=== PATIENT | male | born 1970 | race Caucasian/White ===

== ENCOUNTER → 2018-06-17 | Outpatient (CLI) | payer BC ==
--- NOTE | 2018-06-17 12:19 | CT ---
EXAMINATION TYPE: CT abdomen pelvis wo con DATE OF EXAM: 06/17/2018 COMPARISON: July 28, 2016 HISTORY: Rt side flank pain CT DLP: 1748.3 mGycm Examination of the solid and hollow viscera is limited given the lack of contrast. FINDINGS: LUNG BASES: No evidence for nodule. No evidence for infiltrate. LIVER/GB: The gallbladder is unremarkable. No space-occupying hepatic lesion. PANCREAS: No pancreatic mass identified. No inflammatory process seen. SPLEEN: No evidence for splenomegaly. No intrasplenic lesions seen. ADRENALS: No adrenal nodules identified. No evidence for thickening. KIDNEYS: Distal right ureteral calculus just proximal to the UVJ measuring 3 mm. There is result in r ight-sided hydroureteronephrosis which is [id number] in degree. There is right renal edema and perinephric stranding. Underlying infection is difficult to exclude. Nonobstructing mid right renal c alculus measuring 8.5 mm. BOWEL: Appendix has a normal appearance. No evidence of bowel obstruction. No inflammatory process. Lymph nodes: No evidence for adenopathy greater than 1 cm. Abdominal aorta: Atheromatous changes seen. No evidence for aneurysm. Genital organs: No significant abnormality. Other: Fat-containing umbilical hernia. IMPRESSION: 1.Distal right ureteral calculus just proximal to the UVJ measuring 3 mm. See above.
== END | disposition home or self-care (01) ==
LOC: RADCTMAIN 11:43
PROVIDERS: ATTEND Nurse Practitioner Adult Health
DX: N13.2 Hydronephrosis with renal and ureteral calculous obstruction (principal)
CPT/HCPCS: 74176

== ENCOUNTER → 2018-06-22 | Outpatient (CLI) | payer BC ==
--- NOTE | 2018-06-22 16:10 | XR ---
Abdomen HISTORY: Right kidney stones Frontal view the abdomen submitted on [address] images [address] to CT scan 06/17/2018 Calcification is superimposed over the upper pole the right kidney measuring approximately 7 to 8 mm. Difficult to exclude distal ureteral calculus as noted on prior CT. Multiple calcifications are seen within the pelvis. Lung bases are not included on exam. No evident pneumoperitoneum or bowel obstruc tion. There is a levoscoliosis of the lumbar spine. IMPRESSION: Right-sided nephrolithiasis. Multiple calcifications seen within the pelvis, difficult to exclude distal right ureteral calculus.
== END | disposition home or self-care (01) ==
LOC: RADXRMAIN 15:39
PROVIDERS: ATTEND Urology
DX: N20.0 Calculus of kidney (principal)
CPT/HCPCS: 74018

== ENCOUNTER 2019-04-02 22:22 | Inpatient (IN) | payer BC ==
[2019-04-02] MEDS ORDERED: SODIUM CHLORIDE 0.9% 1,000 ML IV STA (22:46)
[2019-04-02 23:19] LABS: Basophils % (A) 0 %; Eosinophils # (A) 0.3 k/uL (0-0.7); Eosinophils % (A) 2 %; HCT 46.7 % (39.0-53.0); HGB 15.6 gm/dL (13.0-17.5); Lymphocytes # (A) 1.5 k/uL (1.0-4.8); Lymphocytes % (A) 9 %; MCH 28.7 pg (25.0-35.0); MCHC 33.5 g/dL (31.0-37.0); MCV 85.7 fL (80.0-100.0); Mean Platelet Volume 6.7; Monocytes # (A) 0.5 k/uL (0-1.0); Monocytes % (A) 3 %; Neutrophils % (A) 85 %; Platelet Count 244 k/uL (150-450); RBC 5.45 m/uL (4.30-5.90); RDW 14.7 % (11.5-15.5); WBC 16.4 k/uL (3.8-10.6)
[2019-04-02 23:27] LABS: ALT 31 U/L (21-72); AST 18 U/L (17-59); African American GFR (CKD) >90 (>60 ml/min/1.73 sqM); Albumin 4.6 g/dL (3.5-5.0); Alkaline Phosphatase 66 U/L (38-126); Anion Gap 10 mmol/L; Blood Urea Nitrogen 11 mg/dL (9-20); Calcium 8.8 mg/dL (8.4-10.2); Carbon Dioxide 28 mmol/L (22-30); Chloride 102 mmol/L (98-107); Glucose 125 mg/dL (74-99); Sodium 140 mmol/L (137-145); Total Bilirubin 1.2 mg/dL (0.2-1.3); Total Protein 7.5 g/dL (6.3-8.2)
[2019-04-02] MEDS ORDERED: ACETAMINOPHEN TAB 325 MG TAB PO STA (23:31)
[2019-04-02 23:41] LABS: Lipase 2415 U/L (23-300)
--- NOTE | 2019-04-03 00:18 | CT ---
EXAM: CT Abdomen and Pelvis With Intravenous Contrast CLINICAL HISTORY: ITS.REASON CT Reason: Pain TECHNIQUE: Axial computed tomography images of the abdomen and pelvis with intravenous contrast. This CT exam was performed using one or more of the following dose reduction techniques: automated exposure control, adjustment of the mA and/or kV according to patient size, and/or use of iterative reconstruction technique. COMPARISON: No relevant prior studies available. FINDINGS: Lung bases: Unremarkable. No mass. No consolidation. ABDOMEN: Liver: Unremarkable. No mass. Gallbladder and bile ducts: No abnormal ductal dilation or stones. Pancreas: Acute pancreatitis, no fluid collection. No ductal dilation. Spleen: Unremarkable. No splenomegaly. Adrenals: Unremarkable. No mass. Kidneys and ureters: Nonobstructing right renal stone. Stomach and bowel: No obstruction. No mucosal thickening. PELVIS: Appendix: No findings to suggest acute appendicitis. Bladder: Unremarkable. No mass. Reproductive: Unremarkable as visualized. ABDOMEN and PELVIS: Intraperitoneal space: Unremarkable. No free air. No significant fluid collection. Bones/joints: No acute fracture. No dislocation. Soft tissues: Small fat-containing umbilical hernia. Vasculature: No abdominal aortic aneurysm. Lymph nodes: Unremarkable. No enlarged lymph nodes. IMPRESSION: 1. Acute pancreatitis, no fluid collection. 2. Nonobstructing right renal stone.
[2019-04-03] MEDS ORDERED: SODIUM CHLORIDE 0.9% 1,000 ML IV STA (00:28)
[2019-04-03] MEDS ORDERED: NALOXONE 0.4 MG/ML 1 ML VIAL IV PRN (00:40)
[2019-04-03] MEDS ORDERED: HYDROmorphone 1 MG/ML 1 ML SYRINGE IVP PRN (00:40)
[2019-04-03] MEDS ORDERED: ONDANSETRON 4 MG/2 ML VIAL IVP PRN (00:40)
[2019-04-03 00:42] LABS: Appearance,Urine Clear (Clear); Bilirubin,Urine Negative (Negative); Blood,Urine Small (Negative); Color,Urine Yellow; Glucose,Urine (UA) Negative (Negative); Ketones,Urine Negative (Negative); Leukocyte Esterase,Urine Negative (Negative); Mucus,Urine Rare /hpf; Nitrite,Urine Negative (Negative); Protein,Urine 1+ (Negative); RBC,Urine 13 /hpf (0-5); Urobilinogen,Urine <2.0 mg/dL (<2.0); WBC,Urine 1 /hpf (0-5)
[2019-04-03 00:43] LABS: Specific Gravity,Urine >1.050 (1.001-1.035)
[2019-04-03] MEDS ORDERED: IBUPROFEN 800 MG TAB PO STA (00:52)
[2019-04-03] MEDS ORDERED: cefTRIAXone IN SWFI 1,000 MG/10 ML SYRINGE IVP STA (00:52)
--- NOTE | 2019-04-03 00:56 | ED ---
General Adult HPI - General Source: patient, RN notes reviewed, old records reviewed Mode of arrival: ambulatory Limitations: no limitations <Cristian Rueda - Last Filed: 04/03/19 00:56> <Nusrat Ruiz - Last Filed: 04/05/19 06:19> - General Chief complaint: Abdominal Pain Stated complaint: Abd pain Time Seen by Provider: 04/02/19 22:46 - History of Present Illness Initial comments: 48-year-old male patient with past history of hypertension presents to ED 2 days of epigastric abdominal pain. Patient reports he has had nausea without emesis. Patient proceeded seen by his primary care provider today and was recommended to present to ED if pain is not improved or if fever develops. Patient does report that he felt warm at home. Patient denies any chest pain shortness of breath. Patient denies any other complaints at this time. Systemic: Pt denies fatigue, fever/chills, rash. Pt denies weakness, night sweats, weight loss. Neuro: Pt denies headache, visual disturbances, syncope or pre-syncope. HEENT: Pt denies ocular discharge or irritation, otalgia, rhinorrhea, pharyngitis or notable lymphadenopathy. Cardiopulmonary: Pt denies chest pain, SOB, heart palpitations, dyspnea on exertion. Abdominal/GI: Pt denies v/d. : Pt denies dysuria, burning w/ urination, frequency/urgency. Denies new onset urinary or bowel incontinence. MSK: Pt denies myalgia, loss of strength or function in extremities. Neuro: Pt denies new onset weakness, paresthesias. (Cristian Rueda) - Related Data Home Medications Medication Instructions Recorded Confirmed Losartan Potassium 100 mg PO DAILY 04/02/19 04/02/19 Allergies Allergy/AdvReac Type Severity Reaction Status Date / Time No Known Allergies Allergy Verified 04/02/19 23:14 Review of Systems ROS Other: All systems not noted in ROS Statement are negative. <Cristian Rueda - Last Filed: 04/03/19 00:56> ROS Other: All systems not noted in ROS Statement are negative. <Nusrat Ruiz - Last Filed: 04/05/19 06:19> ROS Statement: Those systems with pertinent positive or pertinent negative responses have been documented in the HPI. Past Medical History Past Medical History: Hypertension Additional Past Medical History / Comment(s): KIDNEY STONES History of Any Multi-Drug Resistant Organisms: None Reported Past Surgical History: No Surgical Hx Reported Past Psychological History: No Psychological Hx Reported Smoking Status: Never smoker Past Alcohol Use History: Rare Past Drug Use History: None Reported <Cristian Rueda - Last Filed: 04/03/19 00:56> - Past Family History Father Family Medical History: Diabetes Mellitus Mother Family Medical History: Diabetes Mellitus <Nusrat Ruiz Jaxon - Last Filed: 04/05/19 06:19> General Exam Limitations: no limitations <Cristian Rueda - Last Filed: 04/03/19 00:56> - General Exam Comments Initial Comments: Constitutional: NAD, AOX3, Pt has pleasant affect. HEENT: NC/AT, trachea midline, neck supple, no lymphadenopathy. Posterior pharynx non erythematous, without exudates. External ears appear normal, without discharge. Mucous membranes moist. Eyes PERRLA, EOM intact. There is no scleral icterus. No pallor noted. Cardiopulmonary: RRR, no murmurs, rubs or gallops, no JVD noted. Lungs CTAB in anterior and posterior rivera. No peripheral edema. Abdominal exam: Abdomen soft and non-distended. Abdomen mildly tender to palpation epigastric region, no ecchymoses. No guarding or rigidity. Bowel sounds active in LLQ. No hepatosplenomegaly. No ecchymosis Neuro: CN II-XII grossly intact. No nuchal rigidity. No raccon eyes, no pham sign, no hemotympanum. No cervical spinal tenderness. MSK: No posterior calf tenderness bilaterally, homans sign negative bilaterally. Posterior tibialis and radial pulse +2 bilaterally. Sensation intact in upper and lower extremities. Full active ROM in upper and lower extremities, 5/5 stregnth. (Cristian Rueda) Course Vital Signs 04/02/19 04/03/19 04/03/19 22:27 00:38 01:15 Temperature 100.1 F H 101.9 F H Pulse Rate 107 H 90 Respiratory 18 18 18 Rate Blood Pressure 154/90 152/92 O2 Sat by Pulse 95 98 Oximetry Medical Decision Making - Lab Data Result diagrams: 04/02/19 23:10 04/02/19 23:10 <Cristian Rueda - Last Filed: 04/03/19 00:56> - Lab Data Result diagrams: 04/04/19 06:49 04/04/19 06:49 <Nusrat Ruiz - Last Filed: 04/05/19 06:19> - Medical Decision Making 48-year-old male patient with past history of hypertension presents to ED 2 days of epigastric abdominal pain. Patient reports he has had nausea without emesis. Patient proceeded seen by his primary care provider today and was recommended to present to ED if pain is not improved or if fever develops. Patient does report that he felt warm at home. Patient denies any chest pain shortness of breath. Patient denies any other complaints at this time. 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 Physical exam displayed epigastric region mildly tender to palpation. -Investigations revealed a leukocytosis of 16.4. CMP revealed mildly elevated glucose of 125. Lipase elevated at 2415. UA displayed 13 red blood cells. Influenza negative. CT abdomen and pelvis display acute pancreatitis, no fluid collection. Not c hecking right renal stone. Patient be admitted for acute pancreatitis. Case discussed in depth with Dr. Ruiz. Patient continues to be febrile. Second, para administered. Blood cultures obtained and pending. Patient administered 1 g of prophylactic Rocephin. (Cristian Rueda) I Evaluated the patient. I agree with plan for admission for increased otitis. I did note that the patient was febrile blood cultures were ordered patient was given Rocephin. (Nusrat Ruiz) - Lab Data Lab Results 04/02/19 04/02/19 04/02/19 Range/Units 23:10 23:10 23:10 WBC 16.4 H (3.8-10.6) k/uL RBC 5.45 (4.30-5.90) m/uL Hgb 15.6 (13.0-17.5) gm/dL Hct 46.7 (39.0-53.0) % MCV 85.7 (80.0-100.0) fL MCH 28.7 (25.0-35.0) pg MCHC 33.5 (31.0-37.0) g/dL RDW 14.7 (11.5-15.5) % Plt Count 244 (150-450) k/uL Neutrophils % 85 % Lymphocytes % 9 % Monocytes % 3 % Eosinophils % 2 % Basophils % 0 % Neutrophils # 14.0 H (1.3-7.7) k/uL Lymphocytes # 1.5 (1.0-4.8) k/uL Monocytes # 0.5 (0-1.0) k/uL Eosinophils # 0.3 (0-0.7) k/uL Basophils # 0.0 (0-0.2) k/uL Sodium 140 (137-145) mmol/L Potassium 4.0 (3.5-5.1) mmol/L Chloride 102 (98-107) mmol/L Carbon Dioxide 28 (22-30) mmol/L Anion Gap 10 mmol/L BUN 11 (9-20) mg/dL Creatinine 1.04 (0.66-1.25) mg/dL Est GFR (CKD-EPI)AfAm >90 (>60 ml/min/1.73 sqM) Est GFR (CKD-EPI)NonAf 86 (>60 ml/min/1.73 sqM) Glucose 125 H (74-99) mg/dL Plasma Lactic Acid Girma 1.0 (0.7-2.0) mmol/L Calcium 8.8 (8.4-10.2) mg/dL Total Bilirubin 1.2 (0.2-1.3) mg/dL AST 18 (17-59) U/L ALT 31 (21-72) U/L Alkaline Phosphatase 66 (38-126) U/L Total Protein 7.5 (6.3-8.2) g/dL Albumin 4.6 (3.5-5.0) g/dL Lipase 2415 H (23-300) U/L Urine Color Urine Appearance (Clear) Urine pH (5.0-8.0) Ur Specific [place] (1.001-1.035) Urine Protein (Negative) Urine Glucose (UA) (Negative) Urine Ketones (Negative) Urine Blood (Negative) Urine Nitrite (Negative) Urine Bilirubin (Negative) Urine Urobilinogen (<2.0) mg/dL Ur Leukocyte Esterase (Negative) Urine RBC (0-5) /hpf Urine WBC (0-5) /hpf Urine Mucus (None) /hpf Influenza Type A RNA (Not Detectd) Influenza Type B (PCR) (Not Detectd) 04/02/19 04/03/19 Range/Units 23:10 00:15 WBC (3.8-10.6) k/uL RBC (4.30-5.90) m/uL Hgb (13.0-17.5) gm/dL Hct (39.0-53.0) % MCV (80.0-100.0) fL MCH (25.0-35.0) pg MCHC (31.0-37.0) g/dL RDW (11.5-15.5) % Plt Count (150-450) k/uL Neutrophils % % Lymphocytes % % Monocytes % % Eosinophils % % Basophils % % Neutrophils # (1.3-7.7) k/uL Lymphocytes # (1.0-4.8) k/uL Monocytes # (0-1.0) k/uL Eosinophils # (0-0.7) k/uL Basophils # (0-0.2) k/uL Sodium (137-145) mmol/L Potassium (3.5-5.1) mmol/L Chloride (98-107) mmol/L Carbon Dioxide (22-30) mmol/L Anion Gap mmol/L BUN (9-20) mg/dL Creatinine (0.66-1.25) mg/dL Est GFR (CKD-EPI)AfAm (>60 ml/min/1.73 sqM) Est GFR (CKD-EPI)NonAf (>60 ml/min/1.73 sqM) Glucose (74-99) mg/dL Plasma Lactic Acid [place] (0.7-2.0) mmol/L Calcium (8.4-10.2) mg/dL Total Bilirubin (0.2-1.3) mg/dL AST (17-59) U/L ALT (21-72) U/L Alkaline Phosphatase (38-126) U/L Total Protein (6.3-8.2) g/dL Albumin (3.5-5.0) g/dL Lipase (23-300) U/L Urine Color Yellow Urine Appearance Clear (Clear) Urine pH 7.0 (5.0-8.0) Ur Specific [place] >1.050 H (1.001-1.035) Urine Protein 1+ H (Negative) Urine Glucose (UA) Negative (Negative) Urine Ketones Negative (Negative) Urine Blood Small H (Negative) Urine Nitrite Negative (Negative) Urine Bilirubin Negative (Negative) Urine Urobilinogen <2.0 (<2.0) mg/dL Ur Leukocyte Esterase Negative (Negative) Urine RBC 13 H (0-5) /hpf Urine WBC 1 (0-5) /hpf Urine Mucus Rare H (None) /hpf Influenza Type A RNA Not Detected (Not Detectd) Influenza Type B (PCR) Not Detected (Not Detectd) Disposition Is patient prescribed a controlled substance at d/c from ED?: No <Cristian Rueda - Last Filed: 04/03/19 00:56> <Nusrat Ruiz - Last Filed: 04/05/19 06:19> Clinical Impression: Acute pancreatitis Disposition: ADMITTED IP TO THIS HOSP Condition: Serious
[2019-04-03 02:11] VITALS: BMI 47.9
[2019-04-03] MEDS: SODIUM CHLORIDE 0.9% 1,000 ML IV SCH ×2 (04:26→21:30)
[2019-04-03] MEDS ORDERED: cloNIDine 0.1 MG/24HR PATCH TRANSDERM SCH (08:30)
[2019-04-03] MEDS ORDERED: LOSARTAN 50 MG TAB PO SCH (12:00)
[2019-04-03] MEDS: MORPHINE SULFATE 4 MG/ML SYRINGE IV PRN (13:29)
--- NOTE | 2019-04-03 13:33 | P.CONS ---
History of Present Illness - Reason for Consult Consult date: 04/03/19 Pancreatitis Requesting physician: Frederic Souza - Chief Complaint Abdominal pain - History of Present Illness Pleasant 48-year-old male with a medical history significant for CHINMAY, hypertension and kidney stones who presented to the hospital with complaints of abdominal pain. The patient reports sudden onset of abdominal pain above the belly button without radiation. Pain was described as sharp in nature. He reports nausea with multiple episodes of vomiting productive of food which she had previously been with no reports of coffee-ground emesis or blood in his em esis. He denies any triggering foods, travel, or new medications. He does report that his patient had some flulike symptoms on the weekend. The patient reports very rare use of alcohol and has not drank in the past 3 weeks. He denies any family history of pancreatic cancer or pancreatitis or prior gallbladder pathology in himself or his family members. On presentation to the hospital WBC 16.4, hemoglobin 15.6, platelet count 244,000. His lipase was found to be 2415, total bilirubin 1.2, alkaline phosphatase 66, AST 18, ALTs 31. Computed tomography scan on admission was significant for acute uncomplicated pancreatitis with a right renal stone. The patient does report prior colonoscopy approximately 5 years ago for bleeding which she reports was essentially normal. No prior EGD reported. Review of Systems REVIEW OF SYSTEMS: CONSTITUTIONAL: Denies any fevers, chills, weight change or fatigue. CARDIOVASCULAR: Denies any chest pain, palpitations high or low blood pressures RESPIRATORY: Denies any shortness of breath, hemoptysis or cough. GENITOURINARY: No dysuria or hematuria. MUSCULOSKELETAL: No weakness reported. SKIN: Denies any new rashes or lesions, jaundice or pallor. PSYCHIATRIC: Denies any depression or anxiety. NEUROLOGY: Denies headache, denies any new focal deficits. EARS/NOSE/THROAT: No recent hearing change, congestion, nasal discharge or sore throat. EYES: No pain in eyes, discharge or change in vision. GASTROINTESTINAL: As per HPI. Past Medical History Past Medical History: Hypertension, Sleep Apnea/CPAP/BIPAP Additional Past Medical History / Comment(s): KIDNEY STONES; wears CPAP at home at night History of Any Multi-Drug Resistant Organisms: None Reported Past Surgical History: No Surgical Hx Reported Additional Past Surgical History / Comment(s): kidney stone removal in 2017 Past Psychological History: No Psychological Hx Reported Smoking Status: Former smoker Past Alcohol Use History: Rare Past Drug Use History: None Reported Additional Drug Use History / Comment(s): patient states he quit smoking 20 years ago; reports only occasional alcohol use <1 drink per day. - Past Family History Father Family Medical History: Diabetes Mellitus Mother Family Medical History: Diabetes Mellitus Medications and Allergies Home Medications Medication Instructions Recorded Confirmed Type Losartan Potassium 100 mg PO DAILY 04/02/19 04/02/19 History Allergies Allergy/AdvReac Type Severity Reaction Status Date / Time No Known Allergies Allergy Verified 04/02/19 23:14 Physical Exam Vitals: Vital Signs Temp Pulse Pulse Resp BP BP Pulse Ox 04/03/19 08:10 82 20 04/03/19 07:00 98.2 F 82 20 176/95 97 04/03/19 01:58 98.3 F 04/03/19 01:57 98.2 F 92 18 152/91 95 04/03/19 01:15 18 04/03/19 00:38 101.9 F H 90 18 152/92 98 04/02/19 22:27 100.1 F H 107 H 18 154/90 95 Intake and Output 04/02/19 04/03/19 04/03/19 22:59 06:59 14:59 Other: Voiding Method Toilet Weight 147.418 kg On physical examination, patient appears comfortable in no apparent distress. HEAD: Normocephalic, atraumatic. EYES: No scleral icterus. No conjunctival injection. MOUTH: No lesions, tongue midline. NECK: Trachea midline, no gross abnormalities. CHEST: Clear to auscultation with no wheezing or rhonchi appreciated. HEART: Regular rate and rhythm. ABDOMEN: Soft, obese and diffusely tender to palpation. Bowel sounds are positive. No organomegaly. No guarding or rigidity. EXTREMITIES: No pedal edema. SKIN: No rashes, no jaundice. NEUROLOGIC: Alert and oriented x3. No focal deficits. Results CBC & Chem 7: 04/02/19 23:10 04/02/19 23:10 Labs: Abnormal Lab Results - Last 24 Hours (Table) 04/02/19 04/02/19 04/03/19 Range/Units 23:10 23:10 00:15 WBC 16.4 H (3.8-10.6) k/uL Neutrophils # 14.0 H (1.3-7.7) k/uL Glucose 125 H (74-99) mg/dL Lipase 2415 H (23-300) U/L Ur Specific [place] >1.050 H (1.001-1.035) Urine Protein 1+ H (Negative) Urine Blood Small H (Negative) Urine RBC 13 H (0-5) /hpf Urine Mucus Rare H (None) /hpf CT scan - abdomen: report reviewed (Computed tomography scan of the abdomen with findings of acute uncomplicated pancreatitis and a right renal stone) Assessment and Plan (1) Acute pancreatitis Narrative/Plan: 48-year-old male presenting with first episode of acute uncomplicated pancreatitis. Patient denies any recent binge alcohol use or chronic use of alcohol. No prior history of gallstone pathology and CT negative for cholelit hiasis, cholecystitis or choledocholithiasis. Current Visit: Yes Status: Acute Code(s): K85.90 - ACUTE PANCREATITIS WITHO UT NECROSIS OR INFECTION, UNSP SNOMED Code(s): 549206215 Plan: Supportive care Nothing by mouth, okay for ice chips We'll increase maintenance fluids 150 mL lactated ringer per hour Continue pain control Encourage ambulation Triglyceride level pending in the a.m. Continue to monitor CBC, CMP Ultrasound abdomen ordered to rule out cholelithiasis Thank you for allowing us to participate in the care of the patient we will continue to follow
--- NOTE | 2019-04-03 14:35 | US ---
EXAMINATION TYPE: US abdomen complete DATE OF EXAM: 04/03/2019 COMPARISON: CT CLINICAL HISTORY: Pancreatitis rule out gallstones. PAIN EXAM MEASUREMENTS: Liver Length: 16.5 cm Gallbladder Wall: 0.3 cm CBD: 0.5 cm Spleen: 13.2 cm Right Kidney: 12.3 x 6.0 x 5.7 cm Left Kidney: 12.0 x 6.0 x 5.4 cm Morbidly obese pt, difficult to penetrate Pancreas: Obscured by bowel gas Liver: Limited visualized portions appeared wnl Gallbladder: wnl Evidence for sonographic Isaacs's sign: No CBD: wnl Spleen: Enlarged Right Kidney: Lower pole calculus= 0.7 cm Left Kidney: Limited visualization appears wnl Upper IVC: wnl Abd Aorta: Obscured by overlying bowel gas IMPRESSION: No gallstones or dilated ducts. Calculus without obstruction or pleural right kidney.
[2019-04-03] MEDS: ENOXAPARIN 40 MG/0.4 ML SYRINGE SQ SCH (18:12)
[2019-04-03] MEDS: LACTATED RINGERS 1,000 ML IV SCH ×2 (20:03→21:27)
[2019-04-03] MEDS: ACETAMINOPHEN TAB 325 MG TAB PO PRN (20:10)
--- NOTE | 2019-04-03 23:14 | HP ---
HISTORY AND PHYSICAL DATE OF ADMISSION: April 03, 2019. DATE OF SERVICE: April 03, 2019. PRESENTING COMPLAINT: Abdominal pain, nausea, vomiting, fever. HISTORY OF PRESENTING COMPLAINT: This is a 48-year-old patient of Dr. Rodarte whose chronic stable medical conditions include hypertension, obstructive sleep apnea, kidney stones. On afternoon, patient started off with nausea, vomiting, fever, increasing abdominal pain and presented to the ER. Pain was rather significant. The patient was found to be in acute pancreatitis, also having fevers. Admitted for the same. Feeling tired and run down. GI was consulted. REVIEW OF SYSTEMS: CONSTITUTIONAL: Febrile, tired. HEENT: None. RESPIRATORY none. GASTROINTESTINAL as above. GENITOURINARY none. MUSCULOSKELETAL none. DERMATOLOGIC, HEMATOLOGIC AND LYMPHATIC: None. PSYCHIATRY none. NEUROLOGICAL none. PAST MEDICAL HISTORY: Hypertension, obstructive sleep apnea, kidney stones. PAST SURGICAL HISTORY: Kidney stone removed 2016. SOCIAL HISTORY: Alcohol occasionally. Stopped smoking over 20 years ago. 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 FAMILY HISTORY: Diabetes. HOME MEDICATIONS: Losartan 100 mg a day. ALLERGIES: None. PHYSICAL EXAMINATION: VITAL SIGNS: Temperature 101.9, pulse 107, respiration 18, blood pressure 154/90, pulse ox 95% on room air. GENERAL APPEARANCE: Well built, BMI 48. Lying in bed, tired-appearing. EYES: Pupils equal. Conjunctivae normal. HEENT: External appearance of nose and ears normal. Oral cavity normal. NECK: JVD not raised. Mass not palpable. RESPIRATORY: Effort normal. LUNGS: Fair air entry. CARDIOVASCULAR: First and second sounds normal. No edema. ABDOMEN: Epigastric tenderness. No guarding or rigidity. Liver and spleen not palpable. LYMPHATIC: No lymph nodes palpable in the neck and axilla. PSYCHIATRY: Alert and oriented x3. Mood and affect normal. NEUROLOGICAL: Pupils equal. Cranial nerves grossly intact. Power and sensation grossly intact. INVESTIGATIONS: White count 16.4, hemoglobin 15.6, potassium 4, BUN 11, creatinine 1.04, lipase [id number]. Abdominal ultrasound did not show any gallstones. CT scan of the abdomen and pelvis suggestive of acute pancreatitis. ASSESSMENT: 1. Acute pancreatitis with sepsis picture, present on admission. No history of alcoholism. There is no gallstones. 2. Essential hypertension. 3. Obstructive sleep apnea. 4. Morbid obesity. BMI 48.0. PLAN: The patient has been made n.p.o., getting IV fluids. Pain control is in place. The patient was started on a Catapres patch for his blood pressure. Questions were answered. GI was consulted. Lovenox for DVT prophylaxis. We will check labs again in the morning. Hold off any antibiotics right now. There also appears to be inflammation. Care was discussed with the patient. Copy to Dr. Roadrte. MMODL / IJN: [id number] /
[2019-04-04] MEDS: SODIUM CHLORIDE 0.9% 1,000 ML IV SCH
[2019-04-04] MEDS: ACETAMINOPHEN TAB 325 MG TAB PO PRN ×2 (01:51→19:33)
[2019-04-04] MEDS: MORPHINE SULFATE 4 MG/ML SYRINGE IV PRN ×2 (03:37→17:21)
[2019-04-04] MEDS: LACTATED RINGERS 1,000 ML IV SCH ×4 (05:48→23:38)
[2019-04-04 07:34] LABS: Basophils % (A) 0 %; Eosinophils # (A) 0.2 k/uL (0-0.7); Eosinophils % (A) 1 %; HGB 13.9 gm/dL (13.0-17.5); Lymphocytes # (A) 2.1 k/uL (1.0-4.8); Lymphocytes % (A) 14 %; MCH 29.3 pg (25.0-35.0); MCHC 33.8 g/dL (31.0-37.0); MCV 86.7 fL (80.0-100.0); Mean Platelet Volume 6.8; Monocytes # (A) 0.8 k/uL (0-1.0); Monocytes % (A) 5 %; Neutrophils # (A) 12.4 k/uL (1.3-7.7); Neutrophils % (A) 79 %; Platelet Count 218 k/uL (150-450); RBC 4.73 m/uL (4.30-5.90); WBC 15.8 k/uL (3.8-10.6)
[2019-04-04 07:50] LABS: ALT 22 U/L (21-72); AST 12 U/L (17-59); African American GFR (CKD) >90 (>60 ml/min/1.73 sqM); Albumin 3.6 g/dL (3.5-5.0); Alkaline Phosphatase 61 U/L (38-126); Amylase 146 U/L (30-110); Anion Gap 7 mmol/L; Blood Urea Nitrogen 10 mg/dL (9-20); Calcium 8.3 mg/dL (8.4-10.2); Carbon Dioxide 29 mmol/L (22-30); Chloride 103 mmol/L (98-107); Cholesterol 102 mg/dL (<200); Glucose 92 mg/dL (74-99); HDL Cholesterol 27 mg/dL (40-60); LDL Cholesterol,Calculated 62 mg/dL (0-99); Lipase 385 U/L (23-300); Potassium 4.2 mmol/L (3.5-5.1); Sodium 139 mmol/L (137-145); Total Bilirubin 1.2 mg/dL (0.2-1.3); Total Protein 6.3 g/dL (6.3-8.2); Triglycerides 65 mg/dL (<150)
[2019-04-04] MEDS: ENOXAPARIN 40 MG/0.4 ML SYRINGE SQ SCH (09:07)
--- NOTE | 2019-04-04 21:19 | P.PN ---
Subjective Progress Note Date: 04/04/19 Principal diagnosis: Abdominal pain, pancreatitis Patient seen lying in bed reporting that he tolerated a ship's and asking for diet to be advanced. Abdominal pain improved. No nausea or vomiting reported. Patient did have bowel movement. Objective - Vital Signs Vital signs: Vital Signs Temp 101.3 F H 04/04/19 18:00 Pulse 98 04/04/19 18:00 Resp 16 04/04/19 18:00 BP 164/97 04/04/19 18:00 Pulse Ox 96 04/04/19 18:00 Intake & Output 04/04/19 04/04/19 04/05/19 06:59 18:59 06:59 Other: Voiding Method Toilet Toilet # Voids 1 - Exam On physical examination, patient appears comfortable in no apparent distress. HEAD: Normocephalic, atraumatic. EYES: No scleral icterus. No conjunctival injection. MOUTH: No lesions, tongue midline. NECK: Trachea midline, no gross abnormalities. CHEST: Clear to auscultation with no wheezing or rhonchi appreciated. HEART: Regular rate and rhythm. ABDOMEN: Soft, obese, less tender to palpation. Bowel sounds are positive. No organomegaly. No guarding or rigidity. EXTREMITIES: No pedal edema. SKIN: No rashes, no jaundice. NEUROLOGIC: Alert and oriented x3. No focal deficits. - Labs CBC & Chem 7: 04/04/19 06:49 04/04/19 06:49 Labs: Abnormal Lab Results - Last 24 Hours (Table) 04/04/19 04/04/19 Range/Units 06:49 06:49 WBC 15.8 H (3.8-10.6) k/uL Neutrophils # 12.4 H (1.3-7.7) k/uL Calcium 8.3 L (8.4-10.2) mg/dL AST 12 L (17-59) U/L HDL Cholesterol 27 L (40-60) mg/dL Amylase 146 H (30-110) U/L Lipase 385 H (23-300) U/L Microbiology - Last 24 Hours (Table) 04/03/19 01:26 Blood Culture - Preliminary Blood No Growth after 24 hours Assessment and Plan (1) Acute pancreatitis Narrative/Plan: 48-year-old male presenting with first episode of acute uncomplicated pancr eatitis. Patient denies any recent binge alcohol use or chronic use of alcohol. No prior history of gallstone pathology and CT negative for cholelithiasis, cholecystitis or choledocholithiasis, ultrasound abdomen reviewed with no gallstones seen. Current Visit: Yes Status: Acute Code(s): K85.90 - ACUTE PANCREATITIS WI THOUT NECROSIS OR INFECTION, UNSP SNOMED Code(s): 921210573 Plan: Supportive care Okay for clear liquid diet Continue fluid hydration Continue pain control Encourage ambulation Triglyceride level within normal limits Continue to monitor CBC, CMP Ultrasound abdomen negative for cholelithiasis Thank you for allowing us to participate in the care of the patient we will continue to follow
[2019-04-05] MEDS: LACTATED RINGERS 1,000 ML IV SCH ×3 (01:36→19:33)
[2019-04-05] MEDS: ACETAMINOPHEN TAB 325 MG TAB PO PRN ×3 (02:57→20:05)
[2019-04-05] MEDS: MORPHINE SULFATE 4 MG/ML SYRINGE IV PRN ×3 (03:00→14:51)
--- NOTE | 2019-04-05 07:00 | PN ---
PROGRESS NOTE DATE OF SERVICE: 04/04/2019 PRESENTING COMPLAINT: Abdominal pain. INTERVAL HISTORY: The patient was seen by me yesterday on 04/04/2019. The patient presented with acute severe pancreatitis also with severe SIRS picture. The patient has been spiking fevers. Antibiotics have been held off. Also, this was checked with Dr. Morales who has agreed to hold of antibiotics. The patient feels a bit better this morning. REVIEW OF SYSTEMS: Done for constitutional, cardiovascular, GI, pulmonary; relevant findings as above. CURRENT MEDICATIONS: Current medications are reviewed that include IV fluids. PHYSICAL EXAMINATION: On examination, temperature 99.8, pulse 98, respiration 14, blood pressure 151/94, pulse ox 96% on room air. GENERAL APPEARANCE: Lying in bed, tired appearing, awake. Eyes: Pupils equal. Conjunctivae normal. NECK: JVD not raised. Mass not palpable. RESPIRATORY: Effort normal. LUNGS: Are clear. CARDIOVASCULAR: First and second sounds normal. No edema. ABDOMEN: Epigastric tenderness. No guarding or rigidity. Liver and spleen not palpable. PSYCHIATRY: Alert and oriented x3. Mood and affect normal. INVESTIGATIONS: White count 15.8. Amylase 146, lipase 385. ASSESSMENT: 1. Acute pancreatitis, sepsis picture. White count is coming down and pancreatic numbers also improving. Discussed with Dr. Morales. Agree to hold off the antibiotics. 2. Essential hypertension. 3. Obstructive sleep apnea. 4. Morbid obesity, body mass index 48.0. PLAN: Dr. Morales is okay to start the patient on clear liquids. Care was discussed at length with the patient. Plan is to hold off the antibiotics currently as patient's white count is coming down and patient's pancreatic numbers also improving. Will follow closely. MMODL / IJN: [id number] /
[2019-04-05 08:16] LABS: Basophils % (A) 0 %; Eosinophils # (A) 0.3 k/uL (0-0.7); Eosinophils % (A) 2 %; HCT 41.2 % (39.0-53.0); HGB 13.9 gm/dL (13.0-17.5); Lymphocytes # (A) 1.6 k/uL (1.0-4.8); Lymphocytes % (A) 10 %; MCH 29.2 pg (25.0-35.0); MCHC 33.7 g/dL (31.0-37.0); MCV 86.8 fL (80.0-100.0); Monocytes # (A) 0.8 k/uL (0-1.0); Monocytes % (A) 5 %; Neutrophils % (A) 82 %; Platelet Count 264 k/uL (150-450); RBC 4.75 m/uL (4.30-5.90); RDW 14.3 % (11.5-15.5)
[2019-04-05 08:17] LABS: Amylase 48 U/L (30-110); Lipase 73 U/L (23-300)
[2019-04-05] MEDS: ENOXAPARIN 40 MG/0.4 ML SYRINGE SQ SCH (08:57)
[2019-04-05] MEDS ORDERED: LOSARTAN 50 MG TAB PO STA (10:32)
[2019-04-05] MEDS: LOSARTAN 50 MG TAB PO SCH (10:41)
--- NOTE | 2019-04-05 18:29 | P.PN ---
Subjective Progress Note Date: 04/05/19 Principal diagnosis: Abdominal pain, pancreatitis Patient was seen lying in bed reporting that abdominal pain is improved. He tolerated liquid diet yesterday. No nausea or vomiting reported. Objective - Vital Signs Vital signs: Vital Signs Temp 98.2 F 04/05/19 07:07 Pulse 92 04/05/19 09:02 Resp 15 04/05/19 09:02 BP 169/103 04/05/19 07:07 Pulse Ox 97 04/05/19 07:07 Intake & Output 04/04/19 04/05/19 04/05/19 18:59 06:59 18:59 Intake Total 900 320 Balance 900 320 Intake: Intake, IV Titration 900 Amount Lactated Ringers 1,000 ml 600 @ 100 mls/hr IV .Q10H [facility] Rx#:[id number] Lactated Ringers 1,000 ml 300 @ 150 mls/hr IV .Q6H40M [facility] Rx#:[id number] Oral 320 Other: Voiding Method Toilet Toilet Toilet # Voids 1 1 - Exam On physical examination, patient appears comfortable in no apparent distress. HEAD: Normocephalic, atraumatic. EYES: No scleral icterus. No conjunctival injection. MOUTH: No lesions, tongue midline. NECK: Trachea midline, no gross abnormalities. CHEST: Clear to auscultation with no wheezing or rhonchi appreciated. HEART: Regular rate and rhythm. ABDOMEN: Soft, obese, less tender to palpation. Bowel sounds are positive. No or ganomegaly. No guarding or rigidity. EXTREMITIES: No pedal edema. SKIN: No rashes, no jaundice. NEUROLOGIC: Alert and oriented x3. No focal deficits. - Labs CBC & Chem 7: 04/05/19 07:34 04/04/19 06:49 Labs: Abnormal Lab Results - Last 24 Hours (Table) 04/05/19 Range/Units 07:34 WBC 16.0 H (3.8-10.6) k/uL Neutrophils # 13.0 H (1.3-7.7) k/uL Microbiology - Last 24 Hours (Table) 04/03/19 01:26 Blood Culture - Preliminary Blood No Growth after 48 hours Assessment and Plan (1) Acute pancreatitis Narrative/Plan: 48-year-old male presenting with first episode of acute uncomplicated pancreatitis. Patient denies any recent binge alcohol use or chronic use of alcohol. No prior history of gallstone pathology and CT negative for cholelithiasis, cholecystitis or choledocholithiasis, ultrasound abdomen reviewed with no gallstones seen. Current Visit: Yes Status: Acute Code(s): K85.90 - ACUTE PANCREATITIS WITHOUT NECROSIS OR INFECTION, UNSP SNOMED Code(s): 737777484 Plan: Supportive care Diet advance to regular low-fat today Continue fluid hydration Continue pain control Encourage ambulation Triglyceride level within normal limits Continue to monitor CBC, CMP Ultrasound abdomen negative for cholelithiasis Thank you for allowing us to participate in the care of the patient we will continue to follow
[2019-04-05] MEDS ORDERED: CEFEPIME 1 GM in SODIUM CHLORIDE 0.9% 50 ML IVPB SCH (18:45)
[2019-04-05] MEDS: CEFEPIME 2 GM in SODIUM CHLORIDE 0.9% 100 ML IVPB SCH (19:30)
--- NOTE | 2019-04-05 23:07 | XR ---
EXAMINATION: XR chest 2V DATE AND TIME: 04/05/2019 7:10 PM CLINICAL INDICATION: PHH; fever TECHNIQUE: Departmental protocol COMPARISON: None FINDINGS: The overlying soft tissues are prominent. Lungs appear to be clear. The pleural spaces are negative. The cardiac silhouette is not enlarged. The remainder of the mediastinal silhouette is unremarkable. The skeletal structures and soft tissues are negative for acute findings. IMPRESSION: NO ACUTE PROCESS.
[2019-04-06] MEDS: CEFEPIME 2 GM in SODIUM CHLORIDE 0.9% 100 ML IVPB SCH ×3 (04:44→19:21)
[2019-04-06] MEDS: LACTATED RINGERS 1,000 ML IV SCH ×2 (04:47→19:21)
--- NOTE | 2019-04-06 06:59 | PN ---
PROGRESS NOTE DATE OF SERVICE: 04/05/2019 PRESENTING COMPLAINT: Abdominal pain. INTERVAL HISTORY: This patient was seen by me yesterday afternoon presented with acute severe pancreatitis with severe SIRS picture. The patient was seen by me this morning actually was feeling much better. Had been out of bed. Did tolerate his liquid diet. Had passed some flatus and some small stool. Overall feeling better. REVIEW OF SYSTEMS: Done for constitutional, cardiovascular, GI, pulmonary; relevant findings as above. CURRENT MEDICATIONS: Current medications are reviewed that included IV fluids. PHYSICAL EXAMINATION: On examination, temperature last night was 101.3, this morning it was 98.2, pulse 92, respiration 15, blood pressure 169/103, pulse ox 97% on CPAP. GENERAL APPEARANCE: Lying in bed, looking better. EYES: Pupils equal. Conjunctivae normal. NECK: JVD not raised. Mass not palpable. RESPIRATORY: Effort normal. LUNGS: Clear. CARDIOVASCULAR: First and second sounds normal. No edema. ABDOMEN: Soft. Decreased tenderness. No guarding or rigidity. Liver and spleen not palpable. PSYCHIATRY: Alert and oriented x3. Mood and affect normal. INVESTIGATIONS: White count 16, hemoglobin 13.9. Increased neutrophils. Amylase 48, lipase 73. ASSESSMENT: 1. Acute pancreatitis with sepsis picture. This evening patient again spiked a fever. 2. Essential hypertension. 3. Obstructive sleep apnea. 4. Morbid obesity, body mass index 48.0. PLAN: The nurse had called me. Patient had spiked a fever yet again this evening. I ordered cefepime, ID consult and also ordered a CT scan of the abdomen. I told the nurse to let Dr. Morales know. Repeat labs in the morning. MMODL / IJN: [id number] /
[2019-04-06] MEDS ORDERED: IOPAMIDOL-300 CONTRAST 30 ML VIAL (ORAL USE) PO PRN ×2 (07:24→08:00)
[2019-04-06] MEDS: ENOXAPARIN 40 MG/0.4 ML SYRINGE SQ SCH (09:57)
[2019-04-06] MEDS: LOSARTAN 50 MG TAB PO SCH (09:57)
--- NOTE | 2019-04-06 10:10 | CT ---
EXAMINATION TYPE: CT abdomen pelvis w con DATE OF EXAM: 04/06/2019 COMPARISON: CT abdomen and pelvis from 4 days ago. HISTORY: Pancreatitis with pain. CT DLP: 1932 mGycm, Automated Exposure Control for Dose Reduction was Utilized. CONTRAST: CT scan of the abdomen and pelvis is performed without oral but with IV Contrast, patient injected wi th 100 mL of Isovue 300. FINDINGS: LUNG BASES: No significant abnormality is appreciated. LIVER/GB: No significant abnormality is appreciated. PANCREAS: Pancreas is stable in size and somewhat bulky with redemonstration of severe ill-defined fl uid and fat stranding in the surrounding fat. No definitive areas of nonenhancement. No well-formed f luid collections are seen. No significant change from prior. SPLEEN: Few small splenule in splenic hilum are redemonstrated. ADRENALS: No significant abnormality is seen. KIDNEYS: Stable 2 mm nonobstructing calculus lower pole right kidney axial image 50. Symmetric cortic al medullary uptake and excretion without hydronephrosis. BOWEL: Normal-appearing appendix redemonstrated. No suspicious bowel dilatation. PROSTATE/SEMINAL VESICLES: Prostate gland is upper limits of normal in size. LYMPH NODES: No greater than 1cm abdominal or pelvic lymph nodes are appreciated. OSSEOUS STRUCTURES: Moderate disc space narrowing with vacuum disc phenomenon L3-L4 and L5-S1 levels is redemonstrated. Facet arthropathy lower lumbar spine is again seen. OTHER: Persistent umbilicus hernia containing fat and tiny mesenteric vessels. IMPRESSION: Overall stable findings from recent CT, persistent severe uncomplicated acute pancreatiti s.
[2019-04-06 11:36] LABS: ALT 25 U/L (21-72); AST 22 U/L (17-59); African American GFR (CKD) >90 (>60 ml/min/1.73 sqM); Albumin 3.8 g/dL (3.5-5.0); Alkaline Phosphatase 79 U/L (38-126); Anion Gap 7 mmol/L; Blood Urea Nitrogen 9 mg/dL (9-20); Calcium 8.9 mg/dL (8.4-10.2); Carbon Dioxide 31 mmol/L (22-30); Chloride 101 mmol/L (98-107); Glucose 97 mg/dL (74-99); Potassium 3.8 mmol/L (3.5-5.1); Sodium 139 mmol/L (137-145); Total Bilirubin 0.5 mg/dL (0.2-1.3); Total Protein 6.6 g/dL (6.3-8.2)
[2019-04-06 12:15] LABS: Basophils % (A) 0 %; Eosinophils # (A) 0.2 k/uL (0-0.7); Eosinophils % (A) 2 %; HCT 41.5 % (39.0-53.0); Lymphocytes % (A) 9 %; MCH 29.4 pg (25.0-35.0); MCHC 33.7 g/dL (31.0-37.0); MCV 87.4 fL (80.0-100.0); Mean Platelet Volume 6.6; Monocytes # (A) 0.6 k/uL (0-1.0); Monocytes % (A) 6 %; Neutrophils # (A) 8.9 k/uL (1.3-7.7); Neutrophils % (A) 82 %; Platelet Count 266 k/uL (150-450); RBC 4.75 m/uL (4.30-5.90)
[2019-04-06] MEDS: ACETAMINOPHEN TAB 325 MG TAB PO PRN (15:32)
--- NOTE | 2019-04-06 22:15 | P.CONS ---
History of Present Illness - Reason for Consult Consult date: 04/06/19 Fever Requesting physician: Frederic Souza - Chief Complaint Abdominal pain x few days - History of Present Illness Patient is a 48-year-old male presenting to the ER at [facility] with a chief complaints of abdominal pain that has been going on for a few days before presenting to the hospital the patient pain has been mostly in the epigastric area with intensity of 10 out of 10 by the time he present at the hospital, patient had did have nausea and episode of vomiting associated with this pain but no diarrhea denies having any headache or urinary symptoms and no chest pain shortness of breath or cough and no urinary symptoms with the symptoms the patient was evaluated by the physician on arrival to the patient did have CT of abdominal pelvis that has been suggestive of acute pancreatitis the patient did have elevated amylase and lipase levels CT ultrasound was negative for any gallstones and the patient denies any history of alcohol or been drinking patient has been spiking a fever on a daily basis for the last 3 days patient did have blood cultures has been negative so for the patient has been started on cefepime last night and infection disease was consulted for further recommendation regarding his fevers, patient did have a chest x-ray that was negative for any pneumonia or infiltrate Review of Systems Positive points has been mentioned in HPI rest of the systems are negative Past Medical History Past Medical History: Hypertension, Sleep Apnea/CPAP/BIPAP Additional Past Medical History / Comment(s): KIDNEY STONES; wears CPAP at home at night History of Any Multi-Drug Resistant Organisms: None Reported Past Surgical History: No Surgical Hx Reported Additional Past Surgical History / Comment(s): kidney stone removal in 2017 Past Psychological History: No Psychological Hx Reported Smoking Status: Former smoker Past Alcohol Use History: Rare Past Drug Use History: None Reported Additional Drug Use History / Comment(s): patient states he quit smoking 20 years ago; reports only occasional alcohol use <1 drink per day. - Past Family History Father Family Medical History: Diabetes Mellitus Mother Family Medical History: Diabetes Mellitus Medications and Allergies Home Medications Medication Instructions Recorded Confirmed Type Losartan Potassium 100 mg PO DAILY 04/02/19 04/02/19 History Allergies Allergy/AdvReac Type Severity Reaction Status Date / Time No Known Allergies Allergy Verified 04/02/19 23:14 Physical Exam Vitals: Vital Signs Temp Pulse Resp BP Pulse Ox 04/06/19 08:00 97 16 04/06/19 07:00 99.5 F 97 16 183/80 95 04/06/19 04:46 100.2 F H 04/06/19 02:18 99.7 F H 04/06/19 02:08 100.5 F H 108 H 18 169/78 96 04/05/19 21:59 101.8 F H 04/05/19 21:27 102.7 F H 04/05/19 19:25 102.9 F H 114 H 18 155/87 96 04/05/19 18:32 100.3 F H 04/05/19 16:00 119 H 15 04/05/19 15:59 100.3 F H 04/05/19 14:43 102.7 F H 119 H 15 153/99 97 Intake and Output 04/05/19 04/06/19 04/06/19 22:59 06:59 14:59 Intake Total 520 Balance 520 Intake: Intake, IV Titration 100 Amount Cefepime 2 gm In Sodium 100 Chloride 0.9% 100 ml @ 200 mls/hr IVPB Q8H [facility] Rx#:[id number] Oral 420 Other: Voiding Method Toilet Toilet # Voids 1 1 GENERAL DESCRIPTION: Middle-aged male lying in bed, no distress. No tachypnea or accessory muscle of respiration use. HEENT: Shows Pallor , no scleral icterus. Oral mucous membrane is dry. No pharyngeal erythema or thrush NECK: Trachea central, no thyromegaly. LUNGS: Unlabored breathing. Clear to auscultation anteriorly. No wheeze or crackle. HEART: S1, S2, regular rate and rhythm. No loud murmur ABDOMEN: Soft, mild epigastric tenderness ,no guarding or rigidity EXTREMITIES: No edema of feet. SKIN: No rash, no masses palpable. NEUROLOGICAL: The patient is awake, alert, oriented x3, mood and affect normal Results CBC & Chem 7: 04/06/19 10:55 04/06/19 10:55 Labs: Abnormal Lab Results - Last 24 Hours (Table) 04/06/19 Range/Units 10:55 Carbon Dioxide 31 H (22-30) mmol/L Microbiology - Last 24 Hours (Table) 04/03/19 01:26 Blood Culture - Preliminary Blood No Growth after 72 hours 06/10/19 20:23 Urine Culture - Preliminary Urine,Clean Catch Assessment and Plan Assessment: 1-patient admitted hospital with acute pancreatitis--- with no evidence of any gallstones, no binge alcohol intake or elevated triglyceride level--could be idiopathic pancreatitis or related to either viral or bacterial etiology, patient fever is likely related to inflammation associated with acute pancreatitis underlying component of secondary bacterial infection not entirely excluded as the patient's fever did responded to addition of cefepime though repeat CAT scan has been negative for any complication associated with pancreatitis such as pseudocyst or abscess (1) Acute pancreatitis Current Visit: Yes Status: Acute Code(s): K85.90 - ACUTE PANCREATIT[facility]FE[facility] Code(s): 111239354 Plan: 1-we will obtain viral serology to see if we can identify Possible source 2-recommended to use the patient cefepime 2 g every 12hr on waiting for condition stabilized and culture finalized 3-gentle IV fluids and bowel rest we will follow up on clinical condition and cultures to further adjust medication if needed Thank you for this consultation will follow this patient along with you Time with Patient: Greater than 30
[2019-04-07] MEDS: LACTATED RINGERS 1,000 ML IV SCH ×3 (03:07→19:37)
[2019-04-07] MEDS: CEFEPIME 2 GM in SODIUM CHLORIDE 0.9% 100 ML IVPB SCH ×3 (03:38→19:37)
--- NOTE | 2019-04-07 06:44 | PN ---
PROGRESS NOTE DATE OF SERVICE: 04/06/2019 PRESENTING COMPLAINT: Abdominal pain. INTERVAL HISTORY: This patient presented with acute severe pancreatitis with severe SIRS picture. Yesterday evening, patient started spiking fevers. I did add empirically cefepime, even though actually in the afternoon he is looking better. This morning he is actually doing better. No urinary symptoms. No respiratory symptoms. Started on cefepime last night. REVIEW OF SYSTEMS: Done for constitutional, cardiovascular, GI, pulmonary; relevant findings as above. Abdominal pain is much improved. Just a fullness in the abdomen. CURRENT MEDICATIONS: Reviewed that include IV cefepime 2 g q8h. IV fluids. PHYSICAL EXAMINATION: VITAL SIGNS: On examination, temperature 99.2, pulse 96, respiratory rate 16, blood pressure 183/80, repeat 144/90. The patient's fever was up to 102.7 last night. GENERAL APPEARANCE: Awake, comfortable. EYES: Pupils are equal. Conjunctivae normal. NECK: JVD not raised. Mass not palpable. RESPIRATORY: Effort normal. LUNGS are clear. CARDIOVASCULAR: First and second sounds normal. No edema. ABDOMEN: Soft. Minimal tenderness. No guarding or rigidity. Liver and spleen not palpable. PSYCHIATRY: Alert and oriented times three. Mood and affect normal. INVESTIGATIONS: White count 11, potassium 3.8. CT scan of the abdomen from this morning shows inflammation of the pancreas. Chest x-ray film personally reviewed by me negative. Blood cultures are pending. ASSESSMENT: 1. Acute pancreatitis with SIRS. No evidence of actual infection. Clinically patient is looking now better compared to yesterday. 2. Essential hypertension. 3. Obstructive sleep apnea. 4. Morbid obesity BMI 48.8. Empirically will continue with cefepime. ID was consulted. Repeat labs in the morning. Follow also with Gastroenterology. MMODL / IJN: [id number] /
[2019-04-07 08:03] LABS: Basophils % (A) 0 %; Eosinophils # (A) 0.3 k/uL (0-0.7); Eosinophils % (A) 3 %; HCT 38.5 % (39.0-53.0); Lymphocytes # (A) 1.2 k/uL (1.0-4.8); Lymphocytes % (A) 12 %; MCH 29.4 pg (25.0-35.0); MCHC 33.8 g/dL (31.0-37.0); MCV 86.9 fL (80.0-100.0); Mean Platelet Volume 6.4; Monocytes # (A) 0.7 k/uL (0-1.0); Monocytes % (A) 7 %; Neutrophils # (A) 7.4 k/uL (1.3-7.7); Neutrophils % (A) 76 %; Platelet Count 250 k/uL (150-450); RBC 4.43 m/uL (4.30-5.90); RDW 13.2 % (11.5-15.5); WBC 9.8 k/uL (3.8-10.6)
[2019-04-07 08:14] LABS: African American GFR (CKD) >90 (>60 ml/min/1.73 sqM); Anion Gap 6 mmol/L; Blood Urea Nitrogen 10 mg/dL (9-20); Calcium 8.7 mg/dL (8.4-10.2); Carbon Dioxide 31 mmol/L (22-30); Chloride 103 mmol/L (98-107); Glucose 105 mg/dL (74-99); Potassium 3.9 mmol/L (3.5-5.1); Sodium 140 mmol/L (137-145)
[2019-04-07] MEDS: ENOXAPARIN 40 MG/0.4 ML SYRINGE SQ SCH (10:14)
[2019-04-07] MEDS: LOSARTAN 50 MG TAB PO SCH (10:14)
--- NOTE | 2019-04-07 15:28 | PN ---
PROGRESS NOTE DATE OF SERVICE: 03/28/2019 REASON FOR FOLLOWUP: Fever with acute pancreatitis.. INTERVAL HISTORY: The patient overall fever pattern has improved. The last temperature has been 100 degrees Fahrenheit yesterday afternoon at 1526. Patient's abdominal pain has improved. No nausea, no vomiting. Denies having any chest pain, shortness of breath or cough and no diarrhea. PHYSICAL EXAMINATION: Blood pressure is 180/94 with a pulse of 83, temperature 98.6, he is 97% on room air. General description is a middle aged male, up in the chair in no distress. RESPIRATORY SYSTEM: Unlabored breathing, clear to auscultation anteriorly. HEART: S1, S2. Regular rate and rhythm. ABDOMEN: Soft, no tenderness. EXTREMITIES: No edema of the feet. LABS: Hemoglobin is 13, white count is 9.8 with a BUN of 10, creatinine 1.07. Blood cultures have been negative. Urine culture are negative. DIAGNOSTIC IMPRESSION AND PLAN: Patient in the hospital with abdominal pain has been diagnosed with acute pancreatitis, idiopathic in this patient who did have a persistent fever, seemed to be improved after the addition of cefazolin, will be continued and the patient continued to improve, hopefully finish therapy with a short course of oral antibiotic therapy. Continue supportive care. MMODL / IJN: [id number] /
[2019-04-07 17:06] LABS: Hepatitis A Antibody IgM Non-Reactive (Non-Reactive); Hepatitis B Core IgM Non-Reactive (Non-Reactive)
--- NOTE | 2019-04-07 23:54 | PN ---
PROGRESS NOTE DATE OF SERVICE: 04/07/2019 PRESENTING COMPLAINT: Abdominal pain. INTERVAL HISTORY: Patient presented with acute severe pancreatitis with severe SIRS picture. Empirically was put on cefepime. Feeling better. Just some abdominal fullness. Up and about. Tolerating a liquid diet. Feeling better this morning. REVIEW OF SYSTEMS: Done for constitutional, cardiovascular, GI, pulmonary; relevant findings as above. CURRENT MEDICATIONS: Reviewed. They include IV cefepime, lactated Ringer's. PHYSICAL EXAMINATION: Temperature 98.9, pulse 84, respiration 16, blood pressure 149/92, pulse ox 95% on room air. GENERAL APPEARANCE: Awake, comfortable. EYES: Pupils equal. Conjunctivae normal. NECK: JVD not raised. Mass not palpable. RESPIRATORY: Effort normal. Lungs are clear. CARDIOVASCULAR: First and second sounds normal. No edema. ABDOMEN: Soft. Minimal tenderness. No guarding or rigidity. Liver and spleen not palpable. PSYCHIATRY: Alert and oriented x3. Mood and affect normal. INVESTIGATIONS: White count 9.8, potassium 3.9. Procalcitonin was 0.18. ASSESSMENT: 1. Acute severe pancreatitis with severe systemic inflammatory response syndrome. No obvious evidence of acute bacterial infection but empirically on cefepime. 2. Essential hypertension. 3. Obstructive sleep apnea. 4. Morbid obesity with body mass index of 48.8. PLAN: Continue current medication and treatment plan. Diet is slowly being advanced. Care was discussed with the patient. Patient is on a low-fat diet. Encouraged to ambulate. Check labs in the morning. Hopefully discharge in the next 24 hours if he remains stable, and patient can then be switched to oral antibiotics. MMODL / IJN: [id number] /
[2019-04-08] MEDS: CEFEPIME 2 GM in SODIUM CHLORIDE 0.9% 100 ML IVPB SCH ×2 (03:11→11:54)
[2019-04-08 07:50] LABS: Basophils # (A) 0.1 k/uL (0-0.2); Basophils % (A) 0 %; Eosinophils # (A) 0.3 k/uL (0-0.7); Eosinophils % (A) 3 %; HCT 37.4 % (39.0-53.0); HGB 12.4 gm/dL (13.0-17.5); Lymphocytes # (A) 1.5 k/uL (1.0-4.8); Lymphocytes % (A) 14 %; MCH 29.1 pg (25.0-35.0); Mean Platelet Volume 6.4; Monocytes # (A) 0.7 k/uL (0-1.0); Monocytes % (A) 6 %; Neutrophils # (A) 8.1 k/uL (1.3-7.7); Neutrophils % (A) 74 %; Platelet Count 277 k/uL (150-450); RBC 4.25 m/uL (4.30-5.90); RDW 13.2 % (11.5-15.5); WBC 10.8 k/uL (3.8-10.6)
[2019-04-08 07:55] LABS: ALT 71 U/L (21-72); AST 37 U/L (17-59); African American GFR (CKD) >90 (>60 ml/min/1.73 sqM); Albumin 3.4 g/dL (3.5-5.0); Alkaline Phosphatase 69 U/L (38-126); Anion Gap 5 mmol/L; Blood Urea Nitrogen 11 mg/dL (9-20); Calcium 8.6 mg/dL (8.4-10.2); Carbon Dioxide 30 mmol/L (22-30); Chloride 105 mmol/L (98-107); Glucose 106 mg/dL (74-99); Potassium 3.9 mmol/L (3.5-5.1); Sodium 140 mmol/L (137-145); Total Bilirubin 0.5 mg/dL (0.2-1.3)
[2019-04-08 08:05] VITALS: BP 185/76; PULSE 75; RESP 18; TEMP 98.7
[2019-04-08] MEDS: LOSARTAN 50 MG TAB PO SCH (08:41)
[2019-04-08] MEDS: ENOXAPARIN 40 MG/0.4 ML SYRINGE SQ SCH (08:42)
--- NOTE | 2019-04-08 11:43 | PN ---
PROGRESS NOTE DATE OF SERVICE: 04/08/2019 REASON FOR FOLLOWUP: Fever with acute pancreatitis. INTERVAL HISTORY: The patient is currently afebrile. No fever has been recorded in last 48 hours. The patient overall is feeling better. The patient's abdominal pain is currently resolved. No nausea, no vomiting. Has been tolerating his diet and no diarrhea. Anxious to go home. PHYSICAL EXAMINATION: Blood pressure is 185/76, pulse of 75, temperature 98.7. he is 95% on room air. General description is a middle aged male, up in the chair in no distress. RESPIRATORY SYSTEM: Unlabored breathing, clear to auscultation anteriorly. HEART: S1, S2. Rate regular rate and rhythm. ABDOMEN: Soft, no tenderness. EXTREMITIES: No edema of the feet. LABS: Hemoglobin is 8.4, white count is 10.8. Blood culture has been negative. Viral culture so far negative. DIAGNOSTIC IMPRESSION AND PLAN: Patient admitted to the hospital with acute pancreatitis, possibly idiopathic, as the patient has no history of alcohol, no gallstone or elevated triglyceride level. Patient's fever responded to the cefepime. Will be transitioned to a short course of oral Cipro and Flagyl for about a week with close outpatient followup. Questions and concerns have been answered. Prescription has been sent to the pharmacy. MMODL / IJN: [id number] /
[2019-04-09 05:41] LABS: Herpes simplex IgG I Ab 1.02 (< or = 0.90); Herpes simplex IgG II Ab 5.3 (< or = 0.90)
[2019-04-10 01:32] LABS: Mumps Virus IgM Antibody 0.29 IV (<=0.79)
== END 2019-04-08 14:11 | disposition home or self-care (01) | DRG 439 ==
LOC: EC 22:22 → 4SSUR 04-03 00:39
PROVIDERS: ADMIT Hospitalist; ATTEND Hospitalist
DX: K85.00 Idiopathic acute pancreatitis without necrosis or infection (principal); R65.10 Systemic inflammatory response syndrome (SIRS) of non-infectious origin without acute organ dysfunction; E66.01 Morbid (severe) obesity due to excess calories; G47.33 Obstructive sleep apnea (adult) (pediatric); I10 Essential (primary) hypertension; N20.0 Calculus of kidney; R73.9 Hyperglycemia, unspecified; Z68.42 Body mass index [BMI] 45.0-49.9, adult; Z87.891 Personal history of nicotine dependence; Z87.442 Personal history of urinary calculi; Z79.899 Other long term (current) drug therapy; Z83.3 Family history of diabetes mellitus
CPT/HCPCS: 36415; 71046; 74177; 76700; 80048; 80053; 80061; 80074; 81001; 82150; 83605; 83690; 83735; 84145; 85025; 86645; 86658; 86694; 86695; 86696; 86735; 87040; 87086; 87449; 87502; 94660; 96361; 96374; 99285

== ENCOUNTER → 2020-06-29 | Outpatient (CLI) | payer BC ==
--- NOTE | 2020-06-29 15:51 | XR ---
Abdomen HISTORY: Calculus of kidney Frontal view of the abdomen correlated to prior CT 04/06/2019 There are scattered phleboliths within the pelvis. Renal calculus not identified with certainty, ther e are overlying bowel loops present which could obscure detail. Lung bases are not well seen. There i s no evident bowel obstruction or pneumoperitoneum. There is a slight spinal curvature, degenerative disc changes the visualized spine. Bone mineralization is normal. IMPRESSION: Limitations as described. Nonobstructive bowel gas pattern. Phleboliths are present in th e pelvis.
== END | disposition home or self-care (01) ==
LOC: RADXRMAIN 13:55
PROVIDERS: ATTEND Urology
DX: N20.0 Calculus of kidney (principal)
CPT/HCPCS: 74018

== ENCOUNTER → 2020-07-25 | Outpatient (CLI) | payer BC | END | disposition home or self-care (01) | LOC: RADNMMAIN 07:22 | PROVIDERS: ATTEND Family Medicine | DX: Z53.9 Procedure and treatment not carried out, unspecified reason (principal) ==

== ENCOUNTER 2020-11-23 09:09 | Inpatient (IN) | payer BC ==
[2020-11-23 09:26] LABS: Glucose,Whole Blood 124 mg/dL (75-99)
[2020-11-23] MEDS ORDERED: ONDANSETRON 4 MG/2 ML VIAL IVP STA (09:31)
[2020-11-23] MEDS ORDERED: SODIUM CHLORIDE 0.9% 500 ML 500 ML IV STA (09:34)
--- NOTE | 2020-11-23 09:38 | ED ---
General Adult HPI - General Chief complaint: Neuro Symptoms/Deficit Stated complaint: loss of vision/headache/ Time Seen by Provider: 11/23/20 09:10 Source: patient, RN notes reviewed, old records reviewed Mode of arrival: ambulatory Limitations: no limitations - History of Present Illness Initial comments: This is a 50-year-old male who presents emergency department with past medical history significant for high blood pressure. Patient comes in today stating that he is lost was performed initial vision in his lateral aspect of his vision. Patient states he went to bed last night he was fine he woke up this morning and he had no peripheral vision out of his left eye in the lateral visual field. Patient states he also has a mild headache. Patient states since she's been emergency department is become diaphoretic and dizzy. Patient states moving his head does not seem to make the dizziness worse. Patient denies any chest pain palpitations difficulty breathing shortness of breath. Patient denies any abdominal pain patient denies nausea vomiting diarrhea. - Related Data Home Medications Medication Instructions Recorded Confirmed Losartan Potassium 100 mg PO DAILY 04/02/19 04/02/19 Previous Rx's Medication Instructions Recorded Ciprofloxacin HCl [Cipro] 500 mg PO Q12HR #14 tablet 04/08/19 Losartan [Cozaar] 100 mg PO DAILY tab 04/08/19 metroNIDAZOLE [Flagyl] 500 mg PO Q8HR #21 tab 04/08/19 Allergies Allergy/AdvReac Type Severity Reaction Status Date / Time No Known Allergies Allergy Verified 11/23/20 09:10 Review of Systems ROS Statement: Those systems with pertinent positive or pertinent negative responses have been documented in the HPI. ROS Other: All systems not noted in ROS Statement are negative. Past Medical History Past Medical History: Hypertension, Sleep Apnea/CPAP/BIPAP Additional Past Medical History / Comment(s): KIDNEY STONES; wears CPAP at home at night, chronic back pain History of Any Multi-Drug Resistant Organisms: None Reported Past Surgical History: No Surgical Hx Reported Additional Past Surgical History / Comment(s): kidney stone removal in 2017, back injection Past Psychological History: No Psychological Hx Reported Smoking Status: Former smoker Past Alcohol Use History: Rare Past Drug Use History: None Reported - Past Family History Father Family Medical History: Diabetes Mellitus Mother Family Medical History: Diabetes Mellitus General Exam - General Exam Comments Initial Comments: GENERAL: Patient is well-developed and well-nourished. Patient is nontoxic and well- hydrated and is in mild distress. Patient is diaphoretic. Upon movement of the patient's head he is not increasing is dizziness. ENT: Neck is soft and supple. No significant lymphadenopathy is noted. Oropharynx is clear. Moist mucous membranes. Neck has full range of motion without eliciting any pain. EYES: The sclera were anicteric and conjunctiva were pink and moist. Extraocular movements were intact and pupils were equal round and reactive to light. Eyelids were unremarkable. I examined the ophthalmoscope to look into the patient's left eye for did not dilate his eye I did not see any obvious retinal detachment. PULMONARY: Unlabored respirations. Good breath sounds bilaterally. No audible rales rhonchi or wheezing was noted. CARDIOVASCULAR: There is a regular rate and rhythm without any murmurs gallops or rubs. ABDOMEN: Soft and nontender with normal bowel sounds. No palpable organomegaly was noted. There is no palpable pulsatile mass. SKIN: Skin is clear with no lesions or rashes and otherwise unremarkable. NEUROLOGIC: Patient is alert and oriented x3. Cranial nerves II through XII are grossly i ntact. Motor and sensory are also intact. Normal speech, volume and content. Symmetrical smile. Cerebellar exam grossly intact. Patient has lost visual field out of the left eye in the lateral aspect of his visual field. Patient has loss of visual field in the nasal aspect of the right eye. MUSCULOSKELETAL: Normal extremities with adequate strength and full range of motion. No lower extremity swelling or edema. No calf tenderness. LYMPHATICS: No significant lymphadenopathy is noted PSYCHIATRIC: Normal psychiatric evaluation. Limitations: no limitations Course Vital Signs 11/23/20 11/23/20 11/23/20 09:13 09:30 10:00 Temperature 98 F Pulse Rate 95 92 68 Respiratory 18 18 18 Rate Blood Pressure 205/112 198/116 173/106 O2 Sat by Pulse 97 98 98 Oximetry Medical Decision Making - Medical Decision Making EKG shows normal sinus rhythm at 79 bpm MN interval 256 QRS is 90 QT interval 36 QTC is 442. Patient's EKG shows no ST segment elevation or depression. CT of the brain and CT of the head and neck show no acute abnormality. Chest x-ray shows no acute abnormality. I spoke with Dr. Rodas and he saw the films and agreed that the patient needed to be admitted and he wanted the patient on Plavix Lipitor and aspirin. He also was okay with the blood pressures longer didn't exceed 220 systolic or 120 diastolic. One pack and reevaluate the patient he had no further symptoms but continued have the visual field deficit. I spoke with Dr. Souza agreed to admit the patient admitted the patient in the wrote admitting orders. - Lab Data Result diagrams: 11/23/20 09:34 11/23/20 09:34 Lab Results 11/23/20 11/23/20 11/23/20 Range/Units 09:25 09:34 09:34 WBC 8.5 (3.8-10.6) k/uL RBC 5.08 (4.30-5.90) m/uL Hgb 15.5 (13.0-17.5) gm/dL Hct 43.2 (39.0-53.0) % MCV 85.0 (80.0-100.0) fL MCH 30.5 (25.0-35.0) pg MCHC 35.9 (31.0-37.0) g/dL RDW 12.9 (11.5-15.5) % Plt Count 277 (150-450) k/uL MPV 6.0 Neutrophils % 58 % Lymphocytes % 33 % Monocytes % 5 % Eosinophils % 2 % Basophils % 1 % Neutrophils # 4.9 (1.3-7.7) k/uL Lymphocytes # 2.8 (1.0-4.8) k/uL Monocytes # 0.4 (0-1.0) k/uL Eosinophils # 0.1 (0-0.7) k/uL Basophils # 0.1 (0-0.2) k/uL PT 11.3 (9.0-12.0) sec INR 1.1 (<1.2) APTT 26.7 (22.0-30.0) sec Sodium (137-145) mmol/L Potassium (3.5-5.1) mmol/L Chloride (98-107) mmol/L Carbon Dioxide (22-30) mmol/L Anion Gap mmol/L BUN (9-20) mg/dL Creatinine (0.66-1.25) mg/dL Est GFR (CKD-EPI)AfAm (>60 ml/min/1.73 sqM) Est GFR (CKD-EPI)NonAf (>60 ml/min/1.73 sqM) Glucose (74-99) mg/dL POC Glucose (mg/dL) 124 H (75-99) mg/dL POC 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 [employer]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 Sutherland Calcium (8.4-10.2) mg/dL Total Bilirubin (0.2-1.3) mg/dL AST (17-59) U/L ALT (4-49) U/L Alkaline Phosphatase (38-126) U/L Troponin I (0.000-0.034) ng/mL Total Protein (6.3-8.2) g/dL Albumin (3.5-5.0) g/dL 11/23/20 11/23/20 Range/Units 09:34 09:34 WBC (3.8-10.6) k/uL RBC (4.30-5.90) m/uL Hgb (13.0-17.5) gm/dL Hct (39.0-53.0) % MCV (80.0-100.0) fL MCH (25.0-35.0) pg MCHC (31.0-37.0) g/dL RDW (11.5-15.5) % Plt Count (150-450) k/uL MPV Neutrophils % % Lymphocytes % % Monocytes % % Eosinophils % % Basophils % % Neutrophils # (1.3-7.7) k/uL Lymphocytes # (1.0-4.8) k/uL Monocytes # (0-1.0) k/uL Eosinophils # (0-0.7) k/uL Basophils # (0-0.2) k/uL PT (9.0-12.0) sec INR (<1.2) APTT (22.0-30.0) sec Sodium 141 (137-145) mmol/L Potassium 3.6 (3.5-5.1) mmol/L Chloride 104 (98-107) mmol/L Carbon Dioxide 27 (22-30) mmol/L Anion Gap 10 mmol/L BUN 14 (9-20) mg/dL Creatinine 0.92 (0.66-1.25) mg/dL Est GFR (CKD-EPI)AfAm >90 (>60 ml/min/1.73 sqM) Est GFR (CKD-EPI)NonAf >90 (>60 ml/min/1.73 sqM) Glucose 143 H (74-99) mg/dL POC Glucose (mg/dL) (75-99) mg/dL POC 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
[2020-11-23 09:54] LABS: Basophils # (A) 0.1 k/uL (0-0.2); Basophils % (A) 1 %; Eosinophils # (A) 0.1 k/uL (0-0.7); Eosinophils % (A) 2 %; HCT 43.2 % (39.0-53.0); HGB 15.5 gm/dL (13.0-17.5); Lymphocytes # (A) 2.8 k/uL (1.0-4.8); Lymphocytes % (A) 33 %; MCH 30.5 pg (25.0-35.0); MCHC 35.9 g/dL (31.0-37.0); Monocytes # (A) 0.4 k/uL (0-1.0); Monocytes % (A) 5 %; Neutrophils # (A) 4.9 k/uL (1.3-7.7); Neutrophils % (A) 58 %; Platelet Count 277 k/uL (150-450); RBC 5.08 m/uL (4.30-5.90); RDW 12.9 % (11.5-15.5); WBC 8.5 k/uL (3.8-10.6)
--- NOTE | 2020-11-23 10:00 | CT ---
EXAMINATION TYPE: CT brain wo con for TPA DATE OF EXAM: 11/23/2020 COMPARISON: None INDICATION: Loss of Lt peripheral vision DLP: 1198.9 mGycm, Automated exposure control for dose reduction was used. CONTRAST: None CT of the brain is performed utilizing 3 mm thick sections through the posterior fossa and 3 mm thick sections through the remaining calvarium. Study is performed within 24 hours of arrival to the hosp ital. No abnormal hyperdensity is present to suggest an acute intracranial hemorrhage. No mass lesion is evident. No acute infarcts are evident. Ventricles and sulci are appropriate for the patient age. Paranasal sinuses and mastoid air cells within the [id number] are clear. IMPRESSIONS: 1. No acute intracranial process.
[2020-11-23 10:04] LABS: INR 1.1 (<1.2); Partial Thromboplastin Time 26.7 sec (22.0-30.0); Prothrombin Time 11.3 sec (9.0-12.0)
--- NOTE | 2020-11-23 10:06 | XR ---
EXAMINATION TYPE: XR chest 2V DATE OF EXAM: 11/23/2020 COMPARISON: Prior chest x-ray 04/05/2019 HISTORY: Altered mental status TECHNIQUE: Frontal and lateral views of the chest are obtained. FINDINGS: There is no focal air space opacity, pleural effusion, or pneumothorax seen. The cardiac silhouette size is stable. The osseous structures are intact. Are overlying leads. There is motion on the exam. IMPRESSION: No acute cardiopulmonary process.
[2020-11-23 10:10] LABS: ALT 67 U/L (4-49); AST 42 U/L (17-59); African American GFR (CKD) >90 (>60 ml/min/1.73 sqM); Albumin 4.6 g/dL (3.5-5.0); Alkaline Phosphatase 79 U/L (38-126); Anion Gap 10 mmol/L; Blood Urea Nitrogen 14 mg/dL (9-20); Calcium 9.4 mg/dL (8.4-10.2); Carbon Dioxide 27 mmol/L (22-30); Chloride 104 mmol/L (98-107); Glucose 143 mg/dL (74-99); Non-African American GFR(CKD) >90 (>60 ml/min/1.73 sqM); Potassium 3.6 mmol/L (3.5-5.1); Sodium 141 mmol/L (137-145); Total Protein 7.6 g/dL (6.3-8.2)
--- NOTE | 2020-11-23 10:36 | CT ---
EXAMINATION TYPE: CT angio head neck DATE OF EXAM: 11/23/2020 HISTORY: Loss of Lt peripheral vision. COMPARISON: None CT DLP: 699.8 mGycm. Automated Exposure Control for Dose Reduction was Utilized. TECHNIQUE: CTA scan of the neck is performed with IV Contrast, patient injected with 65 mL of Isovue 370, axial images are obtained, coronal and sagittal reformatted images are reviewed. Three-D recons tructed images are created on an independent workstation and reviewed. Source images are reviewed. FINDINGS: Carotid/Vascular Structures: There is a three-vessel arch. Vertebral arteries are codominant. Carotid bifurcations appear unremarkable without focal stenosis. There is some medial deviation of the inter nal carotid arteries, the right ICA nearly reaches the midline. Vessels are patent to the skull base. Cervical of [place]: Vertebral basilar system appears normal. Posterior cerebral vasculature is unrema rkable. Internal carotid arteries bifurcate normally into A1 and M1 segments. A2 segments are normal. The anterior communicating artery is patent. Posterior communicating arteries are not identified. IMPRESSION: 1. No flow-limiting stenosis bilateral carotid bifurcations. 2. Normal [place] of [place]
[2020-11-23] MEDS ORDERED: ASPIRIN 325 MG TAB PO STA (10:59)
[2020-11-23] MEDS ORDERED: ATORVASTATIN 80 MG TAB PO ONE (11:15)
[2020-11-23 13:53] LABS: Cholesterol 161 mg/dL (<200); HDL Cholesterol 34 mg/dL (40-60); LDL Cholesterol,Calculated 102 mg/dL (0-99); Triglycerides 125 mg/dL (<150)
[2020-11-23 17:26] LABS: Glucose,Whole Blood 93 mg/dL (75-99)
[2020-11-23] MEDS ORDERED: ONDANSETRON 4 MG/2 ML VIAL IVP PRN (17:41)
--- NOTE | 2020-11-23 19:15 | P.CNNES ---
History of Present Illness Consult date: 11/23/20 Requesting physician: Sammy Chandler Reason for Consult: CVA History of Present Illness: Patient is a 50-year-old right-handed male, with history of hypertension, came to the ER this morning at 9:09 a.m. with chief complaints of loss of vision in left half of the visual field.. Patient states that he went to sleep last night at 10:50 PM in usual state of health. He woke up this morning at 6:25 AM with loss of vision in the left half of the visual field.. He did not have any other focal symptoms like slurred speech facial droop, loss of dexterity, problem with balance. He did have a right parietal dull headache. He drank some water, took his blood pressure medications, as the symptoms persisted he came to the ER, and arrived at 9:13 AM. His vital signs in the ER was 205/112, pulse rate 95 temperature 98.0. His blood pressures have been staying like it the ER. While he was in the ER, laying in the stretcher, just before his computed tomography scan of head, he had an episode of vertigo with sweating, that lasted for 5-10 minutes. He had nausea, but no vomiting with this spell. At present he feels fine except for loss of vision on the left side. CT head showed no acute process. Chest x-ray was normal. CTA head showed no significant stenosis, normal [place] of [place]. EKG shows normal sinus rhythm. Stroke neurologist was consulted by ED staff, and patient was not a candidate for TPA, as he woke up with the symptoms. Patient was not a candidate for a thrombectomy. Patient was recommended Plavix, and aspirin 325 mg given. Also started on Lipitor [address] Vicente recommended permissive hypertension unless it is greater than 220/120. Patient has history of hypertension for 3-5 years, which he claims is controlled. Denies diabetes. He smoked 1 pack per day for 1 year, quit in 2010. Drinks alcohol very rarely. No history of strokes or TIA. Denies hyperlipidemia. Patient does not take any antiplatelet medication. He does take losartan 100 mg and Motrin or low back pain. Patient denies any history of migraines. Patient says that his paternal grandfather had history of a stroke. Review of Systems Denies incoordination, no diplopia. He has visual disturbance. Denies any loss of hearing. Denies any chest pain, shortness of breath. As above in HPI. All other review of systems reviewed and unremarkable. Denies any problems with co ntrol of urine. No dysuria. No neck or back pain, denies any recent trauma. Past Medical History Past Medical History: Hypertension, Sleep Apnea/CPAP/BIPAP Additional Past Medical History / Comment(s): KIDNEY STONES; wears CPAP at home at night, chronic back pain History of Any Multi-Drug Resistant Organisms: None Reported Past Surgical History: No Surgical Hx Reported Additional Past Surgical History / Comment(s): kidney stone removal in 2017, back injection Past Psychological History: No Psychological Hx Reported Smoking Status: Former smoker Past Alcohol Use History: Rare Past Drug Use History: None Reported Additional Drug Use History / Comment(s): patient states he quit smoking 20 years ago; reports only occasional alcohol use <1 drink per day. - Past Family History Father Family Medical History: Diabetes Mellitus Mother Family Medical History: Diabetes Mellitus Medications and Allergies Home Medications Medication Instructions Recorded Confirmed Type Losartan Potassium 100 mg PO DAILY 04/02/19 11/23/20 History Ibuprofen [Motrin] 800 mg PO BID 11/23/20 11/23/20 History Allergies Allergy/AdvReac Type Severity Reaction Status Date / Time No Known Allergies Allergy Verified 11/23/20 11:01 Physical Examination - Vital Signs Vital Signs: Vital Signs Temp Pulse Pulse Resp BP BP Pulse Ox 11/23/20 14:00 98.2 F 79 16 165/100 11/23/20 12:39 98.2 F 78 16 185/123 98 11/23/20 11:23 80 18 186/114 99 11/23/20 11:00 75 18 169/107 100 11/23/20 10:00 68 18 173/106 98 11/23/20 09:30 92 18 198/116 98 11/23/20 09:20 79 18 156/108 96 11/23/20 09:13 98 F 95 18 205/112 97 Intake and Output 11/23/20 11/23/20 11/23/20 06:59 14:59 22:59 Intake Total 110 Balance 110 Intake: IV 10 Invasive Line 1 10 Oral 100 Other: Weight 160.5 kg On examination patient is a middle aged male, in no acute distress. Patient is alert awake oriented to time place and person. Speech and language functions are normal. Attention, concentration and fund of knowledge is adequate. On cranial nerve examination pupils are round and reactive to light, visual rivera revealed complete left homonymous hemianopia right to the midline in the upper and lower visual field. Extraocular muscles are intact with no nystagmus. Face is symmetric, tongue protrudes to the midline. Palatal elevation sensation normal. Hearing and shoulder shrug normal. On muscle strength testing there is no pronator drift and the strength is normal in arms and legs distally and proximally reflexes are 1+ and plantars downgoing. Sensory to touch is equal with no neglect. No ataxia for [id number] or [id number]-[id number] testing. Tone and bulk of muscles normal. Gait deferred. On general exam is in the is no carotid bruit or murmur, peripheral pulses present. Abdomen soft nontender, chest is clear. Peripheral pulses present. Results - Laboratory Findings CBC and BMP: 11/23/20 09:34 11/23/20 09:34 Abnormal Lab Findings: Abnormal Labs 11/23/20 11/23/20 11/23/20 09:25 09:34 09:34 Glucose 143 H POC Glucose (mg/dL) 124 H ALT 67 H LDL Cholesterol, Calc 102 H HDL Cholesterol 34 L Assessment and Plan Assessment: * Acute ischemic stroke probably involving right [employer] vascular territory, with complete left homonymous hemianopia. * Transient episode of vertigo while in the ER with nausea lasting for 5-10 minutes, perhaps another TIA. * Hypertension, uncontrolled. * Dyslipidemia * Obesity Plan: * MRI of the brain evaluate for acute stroke. * 2-D echo with bubble study rule out PFO. * Agree with starting aspirin 325 mg daily. Add Plavix 75 mg daily. Would avoid loading dose of Plavix because of risk of hemorrhagic conversion, especially with highly elevated blood pressures. * Permissible hypertension, treat only if > 220/120. * Hemoglobin A1c, fasting a.m. lipid panel. * Patient may need PK and hypercoagulable workup. * Telemetry monitoring so far showing sinus rhythm with heart rate in 80s. * We will follow.
[2020-11-23] MEDS: CLOPIDOGREL 75 MG TAB PO SCH (21:26)
--- NOTE | 2020-11-23 22:44 | P.HPIM ---
History of Present Illness H&P Date: 11/23/20 Chief Complaint: Decreased vision in the left visual field History of presenting complaint: This is a pleasant 50-year-old patient of Dr. Chao Rodarte. Chronic stable medical conditions include hypertension, obstructive sleep apnea, kidney stones. Patient woke up in the morning loss of vision on the left visual field. Had some headache. No fever no chills. No change in speech or swallowing. No weakness of the arms or legs. Presented to the ER. ER physician Dr. Chandler spoke to the neurologist and patient was not felt to be candidate for TPA. Patient's symptoms have persisted. 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 . Stopped smoking over 20 years ago. Physical examination: VITAL SIGNS: 97.8, 78, 16, 174-100, 98% on CPAP GENERAL: BMI 52.3, laying in bed, using CPAP. EYES: Pupils equal. Conjunctiva normal. HEENT: External appearance of nose and ears normal, oral cavity grossly normal. NECK: JVD not raised; masses not palpable. HEART: First and second heart sounds are normal; no edema. LUNGS: Respiratory rate normal; clear to auscultation. ABDOMEN: Soft, nontender, liver spleen not palpable, no masses palpable. PSYCH: Alert and oriented x3; mood and affect normal. NEUROLOGICAL: Left visual field decreased. Otherwise the other focal neurological signs. LYMPHATICS: No lymph nodes palpable in the axilla and neck INVESTIGATIONS, reviewed in the clinical context: White count 8.5 hemoglobin 15.5 platelets 277 potassium 2.6 creatinine 0.9 to LDL 102 Computed tomography scan of the brain without contrast for TPA-negative Chest x-ray film personally reviewed by me-some cardiomegaly CT angiogram head and neck-negative EKG tracing personally reviewed by me-no sinus rhythm Assessment: -This is a patient presented this morning with loss of left visual field. S light headache. No other localizing signs. This is left homonumous hemianopia- -Morbid obesity BMI 52.3 -Essential hypertension -Obstructive sleep apnea uses CPAP -Kidney stones-asymptomatic Plan: Patient started aspirin Lipitor Plavix. Labs on oxygen DVT prophylaxis. Home medications and resume. We will try not to decrease the left pression atraumatically. 2-D echo MRI of the brain ordered. Neuro checks. Care was discussed with the patient. Neurology consulted. Past Medical History Past Medical History: Hypertension, Sleep Apnea/CPAP/BIPAP Additional Past Medical History / Comment(s): KIDNEY STONES; wears CPAP at home at night, chronic back pain History of Any Multi-Drug Resistant Organisms: None Reported Past Surgical History: No Surgical Hx Reported Additional Past Surgical History / Comment(s): kidney stone removal in 2017, back injection Past Psychological History: No Psychological Hx Reported Smoking Status: Former smoker Past Alcohol Use History: Rare Past Drug Use History: None Reported Additional Drug Use History / Comment(s): patient states he quit smoking 20 years ago; reports only occasional alcohol use <1 drink per day. - Past Family History Father Family Medical History: Diabetes Mellitus Mother Family Medical History: Diabetes Mellitus Medications and Allergies Home Medications Medication Instructions Recorded Confirmed Type Losartan Potassium 100 mg PO DAILY 04/02/19 11/23/20 History Ibuprofen [Motrin] 800 mg PO BID 11/23/20 11/23/20 History Allergies Allergy/AdvReac Type Severity Reaction Status Date / Time No Known Allergies Allergy Verified 11/23/20 11:01 Physical Exam Vitals: Vital Signs Temp Pulse Pulse Resp BP BP BP 11/23/20 20:59 78 20 11/23/20 20:00 98.4 F 74 20 174/100 11/23/20 19:45 97.8 F 78 16 188/113 11/23/20 16:54 98.0 F 100 16 138/90 181/100 11/23/20 14:00 98.2 F 79 16 165/100 11/23/20 12:39 98.2 F 78 16 185/123 11/23/20 11:23 80 18 186/114 11/23/20 11:00 75 18 169/107 11/23/20 10:00 68 18 173/106 11/23/20 09:30 92 18 198/116 11/23/20 09:20 79 18 156/108 11/23/20 09:13 98 F 95 18 205/112 Pulse Ox 11/23/20 20:59 11/23/20 20:00 98 11/23/20 19:45 96 11/23/20 16:54 98 11/23/20 14:00 11/23/20 12:39 98 11/23/20 11:23 99 11/23/20 11:00 100 11/23/20 10:00 98 11/23/20 09:30 98 11/23/20 09:20 96 11/23/20 09:13 97 Intake and Output 11/23/20 11/23/20 11/23/20 06:59 14:59 22:59 Intake Total 110 Output Total 2 Balance 110 -2 Intake: IV 10 Invasive Line 1 10 Oral 100 Output: Emesis 2 Other: Weight 160.5 kg Results CBC & Chem 7: 11/23/20 09:34 11/23/20 09:34 Labs: Abnormal Lab Results - Last 24 Hours (Table) 11/23/20 11/23/20 11/23/20 Range/Units 09:25 09:34 09:34 Glucose 143 H (74-99) mg/dL POC Glucose (mg/dL) 124 H (75-99) mg/dL ALT 67 H (4-49) U/L LDL Cholesterol, Calc 102 H (0-99) mg/dL HDL Cholesterol 34 L (40-60) mg/dL Thrombosis Risk Factor Assmnt - Choose All That Apply Any of the Below Risk Factors Present?: Yes Each Factor Represents 1 point: Age 41-60 years, Obesity (BMI >25) Other Risk Factors: No Thrombosis Risk Factor Assessment Total Risk Factor Score: 2 Thrombosis Risk Factor Assessment Level: Low Risk
[2020-11-23] MEDS: ENOXAPARIN 40 MG/0.4 ML SYRINGE SQ SCH (23:08)
[2020-11-24 00:08] VITALS: RESP 18
[2020-11-24 07:02] LABS: Cholesterol 162 mg/dL (<200); HDL Cholesterol 40 mg/dL (40-60); LDL Cholesterol,Calculated 107 mg/dL (0-99); Triglycerides 75 mg/dL (<150)
[2020-11-24] MEDS: ENOXAPARIN 40 MG/0.4 ML SYRINGE SQ SCH (08:41)
[2020-11-24] MEDS: CLOPIDOGREL 75 MG TAB PO SCH (08:42)
[2020-11-24] MEDS ORDERED: ATORVASTATIN 80 MG TAB PO SCH (09:00)
[2020-11-24] MEDS ORDERED: LOSARTAN 50 MG TAB PO SCH (09:00)
[2020-11-24] MEDS ORDERED: ASPIRIN 325 MG TAB PO SCH (09:00)
[2020-11-24] MEDS ORDERED: CLOPIDOGREL 75 MG TAB PO ONE (09:00)
--- NOTE | 2020-11-24 10:41 | ECHOF ---
Referral Reason:Stroke/TIA MEASUREMENTS -------- HEIGHT: 175.3 cm WEIGHT: 160.1 kg BP: 166/95 RVIDd: 2.6 cm (< 3.3) IVSd: 1.3 cm (0.6 - 1.1) LVIDd: 4.6 cm (3.9 - 5.3) LVPWd: 2.0 cm (0.6 - 1.1) IVSs: 2.2 cm LVIDs: 3.1 cm LVPWs: 2.4 cm Ao Diam: 3.4 cm (2.0 - 3.7) AV Cusp: 2.8 cm (1.5 - 2.6) LA Diam: 3.4 cm (2.7 - 3.8) MV EXCURSION: 18.221 mm (> 18.000) MV EF SLOPE: 70 mm/s (70 - 150) EPSS: 0.9 cm MV E Gildardo: 0.62 m/s MV DecT: 125 ms MV A Gildardo: 0.67 m/s MV E/A Ratio: 0.94 RAP: 5.00 mmHg RVSP: 10.65 mmHg FINDINGS -------- Sinus rhythm. This was a technically difficult study with suboptimal views. The left ventricular size is normal. There is moderate concentric left ventricular hypertrophy. O verall left ventricular systolic function is normal with, an EF between 55 - 60 %. The right ventricle is normal in size. The left atrial size is normal. The right atrial size is normal. 5.0mg of Lumason was utilized for enhancement of images Unable to perform bubble study due to poor suboptimal images. The aortic valve was not well visualized. The mitral valve was not well visualized. There is trace mitral regurgitation. The tricuspid valve was not well visualized. Trace tricuspid regurgitation present. Right ventric ular systolic pressure is normal at < 35 mmHg. The pulmonic valve was not well visualized. The aortic root size is normal. IVC Not well visulized. There is no pericardial effusion. CONCLUSIONS -------- 1. This was a technically difficult study with suboptimal views. 2. There is moderate concentric left ventricular hypertrophy. 3. Overall left ventricular systolic function is normal with, an EF between 55 - 60 %. 4. Unable to perform bubble study due to poor suboptimal images. 5. The aortic valve was not well visualized. 6. There is trace mitral regurgitation. 7. Trace tricuspid regurgitation present. 8. There is no pericardial effusion. WHIRLEY OPERATOR: Nancie Figueroa RDCS
--- NOTE | 2020-11-24 13:31 | P.PN ---
Subjective Progress Note Date: 11/24/20 Patient was seen for a follow-up. The loss of visual field on the left side has not improved. Patient could not fit the MRI scanner because of his wide shoulders. Patient at present denies any nausea vomiting, diplopia. He does complain of headache 5/10, pointing to the frontal region. Objective - Vital Signs Vital signs: Vital Signs Temp 97.7 F 11/24/20 08:00 Pulse 84 11/24/20 08:00 Resp 18 11/24/20 08:00 BP 191/106 11/24/20 08:00 Pulse Ox 94 L 11/24/20 08:00 Intake & Output 11/23/20 11/24/20 11/24/20 18:59 06:59 18:59 Intake Total 110 480 110 Output Total 2 450 600 Balance 108 30 -490 Weight 160.5 kg Intake: IV 10 10 Invasive Line 1 10 10 Oral 100 480 100 Output: Urine 450 600 Emesis 2 Other: # Voids 2 - Exam Patient is alert and awake, in no acute distress. Patient has a flat affect. Patient is using BiPAP. Speech and language functions are normal. No aphasia or dysarthria. On cranial examination pupils are 4 mm round and reactive to light to 3 mm. Extraocular muscles are intact with no nystagmus. Face is symmetric, tongue protrudes to the midline. Palatal elevation and sensation normal, hearing and shoulder shrug normal. On muscle strength testing there is no definitive pronator drift, and the strength is normal in arms and legs distally and proximally. Patient has ataxia for [id number] on the left, but not on the right. No ataxia for [id number] testing on either sides. Sensory touch is equal with no neglect on double simultaneous to volition. Reflexes are symmetric and plantars downgoing. 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 * Transient episode of vertigo while in the ER with nausea lasting for 5-10 minutes, perhaps another TIA. Rule out cerebellar CVA * Hypertension, uncontrolled. * Dyslipidemia * Obesity Plan: * Patient could not fit into the MRI scanner because of wide shoulders. We will repeat computed tomography scan of the head. * 2-D echo revealed sinus rhythm, technically difficult study with suboptimal views. Left-ventricular size is normal. Moderate concentric LVH. EF is 55- 60%. Unable to perform bubble study to look for suboptimal images. Noted valve is not well visualized. Recommend PK to rule out embolic source, as 2- D echo was a poor study. * Continue dual antiplatelet medications. Lipitor 80 mg. * May start treating blood pressure slowly. May treat blood pressure if blood pressure >180/110 * Hemoglobin A1c 5.0 * Fasting a.m. lipid panel with cholesterol 162, LDL 107, HDL 40 and triglycerides 75. Continue Lipitor * Telemetry monitoring so far showing sinus rhythm in 70-80. * Hypercoagulable workup. Addendum: CT head was performed, which revealed development of moderate decreased attenuation within the left cerebellar hemisphere. These also several focal areas of decreased attenuation within the right cerebellum. The findings are compatible with acute CVA. There is mild mass effect upon the fourth ventricle and minimal shift from left to right. There is additional area of abnormal decreased attenuation involving the right occipital lobe. Finding suggest embolic process. Based upon computed tomography scan of the head findings, patient is high risk for further cerebellar edema over the next 24-48 hours, may develop hydrocephalus requiring neurosurgical procedure. Especially if patient bleeds into the cerebellum, will need emergent neurosurgical intervention. Therefore patient is being transferred to [facility] for higher level of care. Patient's neurological examination at the time of transfer was stable, headache 5/10. His pupil was left 4.5 mm and right 4 mm, both reactive equally. Discussed with patient, answered all his questions.
--- NOTE | 2020-11-24 13:51 | CT ---
EXAMINATION TYPE: CT brain wo con DATE OF EXAM: 11/24/2020 COMPARISON: 11/23/2020 HISTORY: Weakness, R/O CVA CT DLP: 1096.[address] of the brain was performed. There is interval development of moderate decreased attenuation within the left cerebellar hemisphere . There are also several focal areas of decreased attenuation within the right cerebellum. The findin gs are compatible with acute CVA. There is mild mass effect upon the fourth ventricle and minimal princess ft from left to right. There is an additional area of abnormal decreased attenuation involving the ri ght occipital lobe. Findings suggest embolic process. Osseous calvarium is intact. If symptoms persist consider MRI as clinically warranted. IMPRESSION: 1. Multifocal areas of decreased attenuation involving the right occipital lobe, the left cerebellum as well as the right cerebellum compatible with acute CVA. Correlate for embolic process.
--- NOTE | 2020-11-24 14:07 | P.CRDCN ---
History of Present Illness History of present illness: HISTORY OF PRESENTING ILLNESS This is a pleasant 50-year-old male past medical history significant for hypertension, chronic back pain, kidney stones status post lithotripsy, obstructive sleep apnea with CPAP and morbid obesity. He denies prior history of coronary artery disease and does not follow in the office with a staple laster. We have been asked to see in consultation for transesophageal echocardiogram. He presented to the emergency department with symptoms of vision loss in the left eye. This was associated with a mild headache, dizziness and diaphoresis. 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 An echocardiogram was obtained with bubble study however images were suboptimal. He is seen and examined resting comfortably lying flat in bed in no acute distress. He continues to feel dizziness with position changes or when he moves his head. He denies chest pain, this of breath or palpitations. He denies ever feeling palpitations in the past. Neurology has evaluated the patient and feels his infarct is due to thromboembolic phenomenon. He has been initiated on aspirin 325 mg daily, atorvastatin 80 mg daily and Plavix 75 mg daily. DIAGNOSTICS EKG reveals sinus mechanism. Telemetry tracings indicate persistent sinus mechanism. Chest xray negative for any acute cardiopulmonary process. Brain CT negative for an acute intracranial process on admission. Repeat today reveals multifocal areas of decreased attenuation involving the right occipital lobe, left cerebellum as well as the right cerebellum compatible with acute CVA, correlate for embolic process. CT angiogram reveals no flow-limiting stenosis of bilateral carotid bifurcations with normal [place] of [place]. Laboratory reviewed, CBC unremarkable, sodium 141, potassium 3.6, creatinine 0.92, cardiac enzymes negative 1, LDL 102 and HDL 34. Current cardiac medications include losartan 100 mg daily. REVIEW OF SYSTEMS At the time of my exam: CONSTITUTIONAL: Denies fever or chills. CARDIOVASCULAR: Denies chest pain, shortness of breath, orthopnea, PND or palpitations. RESPIRATORY: Denies cough. GASTROINTESTINAL: Denies abdominal pain, diarrhea, constipation, nausea or vomiting. MUSCULOSKELETAL: Denies myalgias. NEUROLOGIC: Denies numbness, tingling, headacbe or weakness. ENDOCRINE: Denies fatigue, weight change, polydipsia or polyurina. GENITOURINARY: Denies burning, hematuria or urgency with micturation. HEMATOLOGIC: Denies history of anemia or bleeding. PHYSICAL EXAMINATION Blood pressure 191/106 heart rate 84 afebrile and maintaining oxygen saturation on CPAP. CONSTITUTIONAL: No apparent distress. Morbidly obese. HEENT: Head is normocephalic. Pupils are equal, round. Sclerae anicteric. Mucous membranes of the mouth are moist. No JVD. No carotid bruit. CHEST EXAMINATION: Lungs are clear to auscultation. No chest wall tenderness is noted on palpation or with deep breathing. HEART EXAMINATION: Regular rate and rhythm. S1, S2 heard. No murmurs, gallops or rub. ABDOMEN: Soft, nontender. Positive bowel sounds. EXTREMITIES: 2+ peripheral pulses, no lower extremity edema and no calf tend erness. NEUROLOGIC EXAMINATION: Patient is awake, alert and oriented x3. ASSESSMENT Acute CVA Hypertension Sleep apnea Morbid obesity, BMI 52 PLAN Ongoing telemetry monitoring. Will likely require outpatient event monitoring if inpatient monitoring is unremarkable. Schedule for PK tomorrow with Dr. Ferrer. NPO after midnight tonight. Add amlodipine 10 mg daily to his medication regimen. Further recommendations to follow based on clinical course. Thank you kindly for this consultation. Nurse Practitioner note has been reviewed, I agree with a documented findings and plan of care. Patient was seen and examined. Past Medical History Past Medical History: Hypertension, Sleep Apnea/CPAP/BIPAP Additional Past Medical History / Comment(s): KIDNEY STONES; wears CPAP at home at night, chronic back pain History of Any Multi-Drug Resistant Organisms: None Reported Past Surgical History: No Surgical Hx Reported Additional Past Surgical History / Comment(s): kidney stone removal in 2017, back injection Past Psychological History: No Psychological Hx Reported Smoking Status: Former smoker Past Alcohol Use History: Rare Past Drug Use History: None Reported Additional Drug Use History / Comment(s): patient states he quit smoking 20 years ago; reports only occasional alcohol use <1 drink per day. - Past Family History Father Family Medical History: Diabetes Mellitus Mother Family Medical History: Diabetes Mellitus Medications and Allergies Home Medications Medication Instructions Recorded Confirmed Type Losartan Potassium 100 mg PO DAILY 04/02/19 11/23/20 History Ibuprofen [Motrin] 800 mg PO BID 11/23/20 11/23/20 History Allergies Allergy/AdvReac Type Severity Reaction Status Date / Time No Known Allergies Allergy Verified 11/23/20 11:01 Physical Exam Vitals: Vital Signs Temp Pulse Pulse Resp BP BP BP 11/24/20 08:00 97.7 F 84 18 191/106 11/24/20 03:38 98.2 F 76 18 166/95 11/24/20 01:20 78 18 11/24/20 00:00 98.6 F 81 18 188/101 11/23/20 20:59 78 20 11/23/20 20:00 98.4 F 74 20 174/100 11/23/20 19:45 97.8 F 78 16 188/113 11/23/20 16:54 98.0 F 100 16 138/90 181/100 11/23/20 14:00 98.2 F 79 16 165/100 Pulse Ox 11/24/20 08:00 94 L 11/24/20 03:38 96 11/24/20 01:20 11/24/20 00:00 95 11/23/20 20:59 11/23/20 20:00 98 11/23/20 19:45 96 11/23/20 16:54 98 11/23/20 14:00 Intake and Output 11/23/20 11/24/20 11/24/20 22:59 06:59 14:59 Intake Total 480 110 Output Total 2 450 600 Balance -2 30 -490 Intake: IV 10 Invasive Line 1 10 Oral 480 100 Output: Urine 450 600 Emesis 2 Other: # Voids 2 Results 11/23/20 09:34 11/23/20 09:34 Lipids 11/24/20 Range/Units 06:29 Triglycerides 75 (<150) mg/dL Cholesterol 162 (<200) mg/dL HDL Cholesterol 40 (40-60) mg/dL Current Medications Generic Name Dose Route Start Last Admin Trade Name Jordyq PRN Reason Stop Dose Admin Aspirin 325 mg 11/24/20 09:00 11/24/20 08:42 Aspirin 325 Mg Tab PO 325 mg DAILY SEAN Administration Atorvastatin Calcium 80 mg 11/24/20 09:00 11/24/20 08:42 Atorvastatin 80 Mg Tab PO 80 mg DAILY SEAN Administration Clopidogrel Bisulfate 75 mg 11/23/20 19:15 11/24/20 08:42 Clopidogrel 75 Mg Tab PO 75 mg DAILY SEAN Administration Enoxaparin Sodium 40 mg 11/23/20 22:45 11/24/20 08:41 Enoxaparin 40 Mg/0.4 Ml Syringe SQ 40 mg DAILY SEAN Administration Losartan Potassium 100 mg 11/24/20 09:00 11/24/20 08:41 Losartan 50 Mg Tab PO 100 mg DAILY SEAN Administration Ondansetron HCl 4 mg 11/23/20 17:41 11/23/20 17:50 Ondansetron 4 Mg/2 Ml Vial IVP 4 mg Q6HR PRN Administration Nausea And Vomiting Intake and Output 11/23/20 11/24/20 11/24/20 22:59 06:59 14:59 Intake Total 480 110 Output Total 2 450 600 Balance -2 30 -490 Intake: IV 10 Invasive Line 1 10 Oral 480 100 Output: Urine 450 600 Emesis 2 Other: # Voids 2 11/23/20 09:34 11/23/20 09:34
[2020-11-24] MEDS ORDERED: amLODIPine 10 MG TAB PO SCH (14:15)
--- NOTE | 2020-11-24 17:21 | PN ---
PROGRESS NOTE I am covering for Dr. Souza. DATE OF SERVICE: 11/24/2020 This 50-year-old gentleman who was admitted with significant vision loss in the left visual field causing left homonymous hemianopia had multifocal areas of decreased attenuation in the right occipital lobe as well as left cerebellum as well as right cerebellum also. The possibility of embolic process was considered. Neurology has seen the patient. MRI was ordered. MRI could not be done because of the patient's size. Currently a CT angio has been done. A 2D echo with Doppler also has been done. Patient is also slated for PK at this time. The CT angio showed no flow-limiting stenosis in bilateral carotid bifurcations and normal [place] of [place] also. Two-D echo with Doppler showed ejection 55% to 60%, trace mitral regurgitation and trace tricuspid regurgitation also. Past medical history reviewed. REVIEW OF SYSTEMS: NERVOUS SYSTEM: As mentioned earlier. RESPIRATORY: No cough, hemoptysis. GI: As mentioned earlier. : No dysuria or retention. CURRENT MEDICATIONS: Reviewed. They include Norvasc, aspirin, Lipitor, Plavix, Lovenox, Cozaar, Zofran. ALLERGIES: NOTED. PHYSICAL EXAMINATION: Patient is alert and oriented x3. Pulse 74, pressure 182/100, respiration 18, temperature 97.2, pulse ox 92% on CPAP. HEENT: Conjunctivae normal. NECK: No jugular venous distention. CARDIOVASCULAR SYSTEM: S1, S2 muffled. RESPIRATORY SYSTEM: Breath sounds diminished at the bases. No rhonchi. No crackles. ABDOMEN: Soft, non-tender. LEGS: No edema. No swelling. NERVOUS SYSTEM: Left homonymous hemianopia present. LABS: Labs at this time: CBC noted. Glucose 143. LDL is 102 and HDL is 34. ASSESSMENT: 1. Acute left homonymous hemianopia caused by right occipital lobe lesion. 2. Left cerebellar and right cerebellar lesions. Rule out CVA and embolic phenomena. 3. Hyperlipidemia. 4. Sleep apnea, on CPAP. 5. History of nephrolithiasis. 6. Hypertension. 7. History of chronic back pain and degenerative joint disease. 8. History of nicotine dependence. 9. Obesity with body mass index of 52.3. 10.FULL CODE. RECOMMENDATIONS AND DISCUSSION: In this 50-year-old gentleman who presented with multiple complex medical issues, we will monitor the patient closely, continue the current medications, continue with symptomatic treatment. The patient was started on antiplatelet agents and Lovenox. DVT prophylaxis. Monitor blood pressure closely. Permissive hypertension at this time. Otherwise, follow closely with Cardiology and Neurology. MRI could not be done. We will monitor the patient closely. PK has been ordered. I would also recommend blood work, including CRP and ESR and urine protein as well as a drug screen. Prognosis is guarded. Exact etiology of the stroke in this relatively young individual is unknown at this time. Further recommendations to follow. MMODL / IJN: [id number] /
[2020-11-24 20:11] LABS: Appearance,Urine Clear (Clear); Bilirubin,Urine Negative (Negative); Blood,Urine Small (Negative); Color,Urine Yellow; Glucose,Urine (UA) Negative (Negative); Ketones,Urine Trace (Negative); Leukocyte Esterase,Urine Negative (Negative); Mucus,Urine Few /hpf; Nitrite,Urine Negative (Negative); PH, Urine 6.5 (5.0-8.0); Protein,Urine 1+ (Negative); RBC,Urine 12 /hpf (0-5); Specific Gravity,Urine 1.026 (1.001-1.035); Squamous Epithelial Cell,Urine <1 /hpf (0-4); WBC,Urine 3 /hpf (0-5)
[2020-11-24 20:26] LABS: Amphetamine Screen,Urine Not Detected (NotDetected); Barbiturate Screen,Urine Not Detected (NotDetected); Benzodiazepines Screen,Urine Not Detected (NotDetected); Cocaine Screen,Urine Not Detected (NotDetected); Methadone Screen, Urine Not Detected (NotDetected); Opiate Screen,Urine Not Detected (NotDetected); Oxycodone Screen, Urine Not Detected (NotDetected); Phencyclidine Screen,Urine Not Detected (NotDetected); Tricyclic Antidepressant,Urine Not Detected (NotDetected); Urn Cannabinoid Scrn Not Detected (NotDetected)
[2020-11-24 21:30] VITALS: PULSE 84; TEMP 97.7
[2020-11-24 23:16] VITALS: BP 188/90
[2020-11-25] MEDS ORDERED: CLOPIDOGREL 75 MG TAB PO SCH (09:00)
--- NOTE | 2020-11-27 20:22 | DS ---
DISCHARGE SUMMARY FINAL DIAGNOSES: 1. Acute left homonymous hemianopsia caused by right occipital lobe acute infarct and cerebrovascular accident. 2. Left cerebral and right cerebellar cerebrovascular incidents with surrounding edema. 3. Rule out embolic phenomena. 4. Hyperlipidemia. 5. Obstructive sleep apnea on CPAP. 6. History of nephrolithiasis. 7. Hypertension. 8. History of chronic back pain and degenerative joint disease. 9. History of nicotine dependence. 10.Obesity with body mass index of 52.3. 11.FULL CODE. DISCHARGE DISPOSITION: Patient is transferred to [facility] for further evaluation and treatment. HISTORY OF PRESENT ILLNESS: This 50-year-old gentleman with a past medical history of multiple medical problems admitted with acute left homonymous hemianopsia caused by right occipital infarct. Patient also had bilateral cerebellar lesions. Repeat CT scan showed some significant edema and neurology was concerned about the possibility of herniation and I discussed the case with [facility] and patient was transferred directly to [facility] for further evaluation and treatment. Prognosis remained guarded throughout the hospital stay and please refer to the multiple progress notes, consult notes and staff notes for further details. MMODL / IJN: [id number] /
== END 2020-11-24 22:15 | disposition short-term general hospital (02) | DRG 65 ==
LOC: EC 09:09 → 3SCARD 10:59
PROVIDERS: ADMIT Hospitalist; ATTEND Hospitalist
DX: I63.531 Cerebral infarction due to unspecified occlusion or stenosis of right posterior cerebral artery (principal); Z68.43 Body mass index [BMI] 50.0-59.9, adult; I10 Essential (primary) hypertension; H53.462 Homonymous bilateral field defects, left side; H54.62 Unqualified visual loss, left eye, normal vision right eye; N20.0 Calculus of kidney; E66.01 Morbid (severe) obesity due to excess calories; E78.5 Hyperlipidemia, unspecified; G47.33 Obstructive sleep apnea (adult) (pediatric); Z79.02 Long term (current) use of antithrombotics/antiplatelets; Z79.82 Long term (current) use of aspirin; Z79.899 Other long term (current) drug therapy; Z83.3 Family history of diabetes mellitus; Z87.442 Personal history of urinary calculi; Z87.891 Personal history of nicotine dependence; G89.29 Other chronic pain; M54.9 Dorsalgia, unspecified; Z20.822 Contact with and (suspected) exposure to COVID-19; Z79.1 Long term (current) use of non-steroidal anti-inflammatories (NSAID); Z99.89 Dependence on other enabling machines and devices
CPT/HCPCS: 36415; 70450; 70496; 70498; 71046; 80053; 80061; 80306; 81001; 83036; 84484; 85025; 85610; 85652; 85730; 86140; 87040; 87635; 93005; 93306; 96374; 99291